=== PATIENT | female | born 1940 | race Caucasian/White ===

== ENCOUNTER 2020-08-02 08:56 | Outpatient (REF) | payer MEDICARE, SELFPAY | END 2020-08-02 08:57 | disposition home or self-care (01) | LOC: HO.LNP 08:56 | PROVIDERS: PCP Hospitalist; Visit Provider Urology | DX: C67.9 Malignant neoplasm of bladder, unspecified (principal); Z87.891 Personal history of nicotine dependence | CPT/HCPCS: 52000; 81002; 99212 ==

== ENCOUNTER 2020-08-03 15:22 | Outpatient (REF) | payer MEDICARE, SELFPAY ==
[2020-08-03 14:01] LABS: Urine Cytology See Pathology rpt
== END 2020-08-03 15:23 | disposition home or self-care (01) ==
LOC: HO.LNP 15:22
PROVIDERS: Visit Provider Urology
DX: C67.9 Malignant neoplasm of bladder, unspecified (principal)
CPT/HCPCS: 88112

== ENCOUNTER 2021-01-31 09:41 | Outpatient (REF) | payer MEDICARE, SELFPAY ==
[2021-01-31 12:27] LABS: Urine Cytology See Pathology rpt
== END 2021-01-31 09:42 | disposition home or self-care (01) ==
LOC: CF 09:41
PROVIDERS: PCP Hospitalist; Visit Provider Urology
DX: C67.9 Malignant neoplasm of bladder, unspecified (principal)
CPT/HCPCS: 52000; 88112; 99212

== ENCOUNTER 2021-08-03 09:39 | Outpatient (REF) | payer MEDICARE, SELFPAY ==
[2021-08-04 11:36] LABS: Urine Cytology See Pathology rpt
== END 2021-08-03 09:40 | disposition home or self-care (01) ==
LOC: HO.LAB 09:39
PROVIDERS: PCP Hospitalist; Visit Provider Urology
DX: C67.9 Malignant neoplasm of bladder, unspecified (principal)
CPT/HCPCS: 52000; 88112; 99212

== ENCOUNTER 2022-01-31 09:54 | Outpatient (REF) | payer MEDICARE, SELFPAY ==
[2022-01-31 16:20] LABS: Urine Cytology See Pathology rpt
== END 2022-01-31 09:55 | disposition home or self-care (01) ==
LOC: HO.LAB 09:54
PROVIDERS: Visit Provider Urology
DX: C67.9 Malignant neoplasm of bladder, unspecified (principal)
CPT/HCPCS: 52000; 88112; 99212

== ENCOUNTER 2022-08-03 09:44 | Outpatient (REF) | payer MEDICARE, SELFPAY ==
[2022-08-03 16:40] LABS: Urine Cytology See Pathology rpt
== END 2022-08-03 09:45 | disposition home or self-care (01) ==
LOC: HO.LAB 09:44
PROVIDERS: PCP Nurse Practitioner Family; Visit Provider Urology
DX: C67.9 Malignant neoplasm of bladder, unspecified (principal)
CPT/HCPCS: 52000; 88112

== ENCOUNTER 2023-03-12 09:46 | Outpatient (AMB) | payer MEDICARE, SELFPAY ==
--- NOTE | 2023-03-12 10:00 | A.OFFVIS_ITS ---
Intake Intake Visit Reasons: 6m follow up/cysto Intake Note: Patient is present for Cystoscopy Urology Med: None Antibiotic Allergy: None Blood Thinner: None Pharmacy: [facility] Disposable Cystoscope used during Procedure LOT#: [id number] EXP: 11/04/2024 Allergies codeine [CODEINE] Allergy (Unknown, Verified 03/12/23 10:03) NAUSEA & VOMITING oxycodone [OXYCODONE] Allergy (Unknown, Verified 03/12/23 10:03) UNKNOWN HPI HPI Comments History of Present Illness Details Leilani HUTCHINSON is a very pleasant female. She is a patient of . She is seen for the following urologic conditions - bladder cancer Bladder clear Six month follow-up Mild irritation Review in 6 months Bladder Cancer: November 2017 high-grade, initial therapy TURBT followed by BCG and surveillance Cystoscopy today normal Bladder cancer was initially diagnosed during evaluation for gross hematuria - 11/[address] Duncan. Bladder intervention(s) performed 12/09 , TURBT, T1 invades subepithelium, High Grade 05/11 restaging bladder biopsy. Recurrence Risk per EORTC Intermediate Risk. Bladder cancer risk factors Organic Solvent exposure No smoking Yes - 30 year a history stopped in 1994 Prior Cystoscopy 04/10 BCG redness 07/12 BCG inflammation 10/10 BCG inflammation on back wall 01/09 mild red changes, trabeculation 05/12 BCG changes 09/10 BCG changes 12/11 NAD, 08/14 NAD, 02/11 NAD, 08/15 NAD, 02/12 NAD, 08/16 NAD, 03/16 mild inflamation Prior Cytology 07/12 , Negative for malignancy, Inflammatory cells 04/11 , Negative for malignancy 05/12 NAD, 08/13 NAD, 11/10 Atypical, 08/14 NAD, 02/12 NAD Prior Imaging 12/09 , Retrogrades, Negative 11/08 CT Scan , Negative. Previous intravesical therapy 01/08 , BCG Induction 04/10 , BCG Maintanence, 01/09 , BCG Maintanence, 08/13 Gemcitabine Maintanence. Planned treatment - surveillance protocol [facility] Medical History Diabetes mellitus, type II GERD (gastroesophageal reflux disease) Malignant neoplasm of anterior wall of urinary bladder Surgical History History of hysterectomy Social History Current occupational status: retired Review of Systems Const Denies chills and Denies fever(s) Card Reports no additional complaints and Denies syncope Resp Denies cough GI Denies abdominal pain and Denies heartburn Reports as per HPI and Denies change in libido Neuro Denies syncope Psych Denies change in libido Endo Denies change in libido Physical Exam Const General: cooperative, healthy appearing, comfortable and no acute distress Orientation/consciousness: patient oriented x3 HEENT Face and sinus: Yes normal facial exam Mouth: moist mucous membranes Neck Neck: Yes normal visual inspection, Yes full ROM and Yes trachea midline Chest Chest palpation & inspection: normal inspection of the chest Resp Effort & Inspection: normal respiratory effort, able to speak in complete sentences and no respiratory distress GI Inspection: Yes normal to inspection Back/Spine/Pelvis Cervical Spine: normal cervical lordosis Thoracic/Lumbar Spine: thoracic and lumbar spine normal to inspection Skin General skin exam: no rashes or lesions noted Neuro General: patient oriented x3, gait normal, tone normal and moves all extremities Extrem General: Yes normal to inspection and Yes capillary refill normal Office Procedures Cystoscopy Consent Discussed risk and benefit or proposed procedure with the patient. Information consent for procedure given to the patient. Discussed technical aspects, risks, benefits and alternatives in full. Addressed all of the patient's questions and concerns regarding the procedure. The patient demonstrated knowledge and understanding. They wish to proceed with this procedure. Preparation The patient was prepped in the usual manner. A attending physician was present and in the room. Genitalia was prepped with betadine solution in a sterile manner. Lidocaine Jelly 2% was placed into the urethra and 16Fr flexible Olympus cystoscope was inserted into the meatus after adequate lubrication. Procedure Meatus normal position Urethra normal Bladder examination with retroflexion of cystoscope Bladder Orifices normal Trigone inflamed Bladder Capacity medium Trabeculations grade 2 Cellule Formation yes Diverticulum Formation small superior Mucosal Erythema patchy irritation Bladder Tumor - [id number]-[id number] DISPOSABLE SCOPE URO-G FLEXIBLE SCOPE Procedure code (CPT) selection complete Office Meds lidocaine HCl 2 % mucosal jelly in applicator Performing Provider: Craig Duncan MD [facility] [place] [facility] Administered by: Prachi Garcia RN on 03/12/23 10:11 Dose Route Admin Location Dispensed Lot Number Expiration Date NDC Medical Device Sales 10 mL intra-urethral 10 mL nitrofurantoin monohydrate/macrocrystals 100 mg capsule Performing Provider: Craig Duncan MD Performing Location[facility] [place] [facility] Administered by: Prachi Garcia RN on 03/12/23 10:11 Dose Route Admin Location Dispensed Lot Number Expiration Date NDC Medical Device Sales 100 mg PO 1 cap naproxen 500 mg tablet Performing Provider: Craig Duncan MD Performing Location[facility] [place] [facility] Administered by: Prachi Garcia RN on 03/12/23 10:11 Dose Route Admin Location Dispensed Lot Number Expiration Date NDC Medical Device Sales 500 mg PO 1 tab Results AMB Urinalysis, Automated 2 UA Leukoctes 0 Frederic/uL Last Edit by April Agrawal [facility] on 03/12/23 10:15 UA Nitrite Negative Last Edit by April Agrawal [facility] on 03/12/23 10:15 UA Urobilinogen 0.2 mg/dL Last Edit by April Agrawal [facility] on 03/12/23 10:1 5 UA Protein 0 mg/dL Last Edit by April Agrawal [facility] on 03/12/23 10:15 UA pH 6.0 Last Edit by April Agrawal [facility] on 03/12/23 10:15 UA Blood 0 [place]/uL Last Edit by April Agrawal [facility] on 03/12/23 10:15 UA Specific [place] 1.010 Last Edit by April Agrawal [facility] on 03/12/23 10: 15 UA Ketone Negative Last Edit by April Agrawal [facility] on 03/12/23 10:15 UA Bilirubin 0 mg/dL Last Edit by April Agrawal [facility] on 03/12/23 10:15 UA Glucose 0 mg/dL Last Edit by April Agrawal [facility] on 03/12/23 10:15 Results Reviewed Results Reviewed: Laboratory Last Values Urine pH (Auto) 6.0 03/12/23 10:03 Specific [place] (Auto) 1.010 03/12/23 10:03 Urine Protein (Auto) 0 mg/dL 03/12/23 10:03 Glucose (UA)(Auto) 0 mg/dL 03/12/23 10:03 Urine Ketones (Auto) Negative 03/12/23 10:03 Urine Blood (Auto) 0 [place]/uL 03/12/23 10:03 Urine Nitrite (Auto) Negative 03/12/23 10:03 Urine Bilirubin (Auto) 0 mg/dL 03/12/23 10:03 Urine Urobilinogen (Auto) 0.2 mg/dL 03/12/23 10:03 Leukocyte Esterase (Auto) 0 Frederic/uL 03/12/23 10:03 Assessment & Plan Assessment & Plan (1) Bladder cancer: Comment: 2018 high-grade superficial treatment was TURBT and immunotherapy sequence Code(s): C67.9 - Malignant neoplasm of bladder, unspecified Plan Continue surveillance Orders: Orders AMB Cystoscopy Today C67.9 - Malignant neoplasm of bladder, unspecified AMB Urinalysis Automated Today C67.9 - Malignant neoplasm of bladder, unspecified, Z13.9 - Encounter for screening, unspecified Urine Cytology Today C67.9 - Malignant neoplasm of bladder, unspecified Patient Instructions: Imaging studies, laboratory and physical exam results were discussed and reviewed in detail. No major barriers to patient understanding were identified. An opportunity to ask questions regarding the treatment plan was provided. All questions were answered. The patient expressed understanding and agreement with the above treatment plan. The patient is aware they should contact our office by phone for worsening of their current condition or the appearance of new urologic symptoms. Compliance is encouraged with any medications and followup testing that is ordered. It is a privilege to participate in the urologic care of your patient. If you have any questions or concerns regarding treatment for the above conditions, or other urologic issues, please do not hesitate to contact me. The office telephone contact is [phone]. This note is constructed using voice recognition software. While every effort has been made to ensure accuracy electronic design engineer errors may have been included. Yours sincerely, Dr Craig Duncan MD, [place] [facility] - Urology Providers of Expert, Compassionate Care for the Genitourinary System Coding Level of Care Code Est Pt Level 3 (58249) Diagnoses Bladder cancer C67.9 CPT Codes Cystoscopy - CPT: 76237-[id number] ([id number])
== END 2023-03-12 11:07 | disposition home or self-care (01) ==
PROVIDERS: PCP Nurse Practitioner Family; Visit Provider Urology
DX: C67.9 Malignant neoplasm of bladder, unspecified (principal)
CPT/HCPCS: 52000

== ENCOUNTER → 2023-03-12 09:46 | Outpatient (BNVA) | payer MEDICARE, SELFPAY | PROVIDERS: Visit Provider Urology | DX: C67.9 Malignant neoplasm of bladder, unspecified (principal) | CPT/HCPCS: 52000; 81003; 88112 ==

== ENCOUNTER 2023-03-12 16:36 | Outpatient (REF) | payer MEDICARE, SELFPAY ==
[2023-03-12 16:39] LABS: Urine Cytology See Pathology rpt
== END 2023-03-12 16:37 | disposition home or self-care (01) ==
LOC: HO.LNP 16:36
PROVIDERS: Visit Provider Urology
DX: Z13.89 Encounter for screening for other disorder (principal)
CPT/HCPCS: 88112

== ENCOUNTER 2023-09-10 08:33 | Outpatient (AMB) | payer MEDICARE, SELFPAY ==
--- NOTE | 2023-09-10 08:47 | A.OFFVIS_ITS ---
Intake Intake Visit Reasons: Cysto Intake Note: Patient is Present for Cystoscopy Urology Med: None Antibiotic Allergy:None Blood Thinner: None URO- G HD Disposable Cystoscope lot: [id number] exp: Allergies codeine [CODEINE] Allergy (Unknown, Verified 09/10/23 08:53) NAUSEA & VOMITING oxycodone [OXYCODONE] Allergy (Unknown, Verified 09/10/23 08:53) UNKNOWN HPI HPI Comments History of Present Illness Details Leilani HUTCHINSON is a very pleasant female. She is a patient of . She is seen for the following urologic conditions - bladder cancer On 6 months cystoscopy schedule Cystoscopy clear Continue surveillance for 10 years q.6 months Bladder Cancer: November 2017 high-grade, initial therapy TURBT followed by BCG and surveillance Cystoscopy today normal Bladder cancer was initially diagnosed during evaluation for gross hematuria - 11/[address] Duncan. Bladder intervention(s) performed 12/09 , TURBT, T1 invades subepithelium, High Grade 05/11 restaging bladder biopsy. Recurrence Risk per EORTC Intermediate Risk. Bladder cancer risk factors Organic Solvent exposure No smoking Yes - 30 year a history stopped in 1994 Prior Cystoscopy 04/10 BCG redness 07/12 BCG inflammation 10/10 BCG inflammation on back wall 01/09 mild red changes, trabeculation 05/12 BCG changes 09/10 BCG changes 12/11 NAD, 08/14 NAD, 02/11 NAD, 08/15 NAD, 02/12 NAD, 08/16 NAD, 03/16 mild inflamation, 10/14 NAD Prior Cytology 07/12 , Negative for malignancy, Inflammatory cells 04/11 , Negative for malignancy 05/12 NAD, 08/13 NAD, 11/10 Atypical, 08/14 NAD, 02/12 NAD, 03/16 NAD Prior Imaging 12/09 , Retrogrades, Negative 11/08 CT Scan , Negative. Previous intravesical therapy 01/08 , BCG Induction 04/10 , BCG Maintanence, 01/09 , BCG Maintanence, 08/13 Gemcitabine Maintanence. Planned treatment - surveillance protocol [facility] Medical History Diabetes mellitus, type II GERD (gastroesophageal reflux disease) Malignant neoplasm of anterior wall of urinary bladder Surgical History History of hysterectomy Social History Current occupational status: retired Review of Systems Const Denies chills and Denies fever(s) Card Reports no additional complaints and Denies syncope Resp Denies cough GI Denies abdominal pain and Denies heartburn Reports as per HPI and Denies change in libido Neuro Denies syncope Psych Denies change in libido Endo Denies change in libido Physical Exam Const General: cooperative, healthy appearing, comfortable and no acute distress Orientation/consciousness: patient oriented x3 HEENT Face and sinus: Yes normal facial exam Mouth: moist mucous membranes Neck Neck: Yes normal visual inspection, Yes full ROM and Yes trachea midline Chest Chest palpation & inspection: normal inspection of the chest Resp Effort & Inspection: normal respiratory effort, able to speak in complete sentences and no respiratory distress GI Inspection: Yes normal to inspection Back/Spine/Pelvis Cervical Spine: normal cervical lordosis Thoracic/Lumbar Spine: thoracic and lumbar spine normal to inspection Skin General skin exam: no rashes or lesions noted Neuro General: patient oriented x3, gait normal, tone normal and moves all extremities Extrem General: Yes normal to inspection and Yes capillary refill normal Office Procedures Cystoscopy Consent Discussed risk and benefit or proposed procedure with the patient. Information consent for procedure given to the patient. Discussed technical aspects, risks, benefits and alternatives in full. Addressed all of the patient's questions and concerns regarding the procedure. The patient demonstrated knowledge and understanding. They wish to proceed with this procedure. Preparation The patient was prepped in the usual manner. A prison officer was present and in the room. Genitalia was prepped with betadine solution in a sterile manner. Lidocaine Jelly 2% was placed into the urethra and 16Fr flexible Olympus cystoscope was inserted into the meatus after adequate lubrication. Procedure Meatus normal position Urethra normal Bladder examination with retroflexion of cystoscope Bladder Orifices normal shape and position Trigone mild metaplasia Bladder Capacity normal Trabeculations grade 1 Cellule Formation yes Diverticulum Formation - Mucosal Erythema - Bladder Tumor scarring on sidewall [id number] DISPOSABLE SCOPE URO-G FLEXIBLE SCOPE Procedure code (CPT) selection complete Office Meds lidocaine HCl 2 % mucosal jelly in applicator Performing Provider: Craig Duncan MD Performing Location: [facility] [place] [facility] Administered by: Prachi Arrington RN on 09/10/23 09:03 Dose Route Admin Location Dispensed Lot Number Expiration Date NDC It Security Analyst 10 mL intra-urethral 10 mL nitrofurantoin monohydrate/macrocrystals 100 mg capsule Performing Provider: Craig Duncan MD Performing Location: [facility] [place] [facility] Administered by: Prachi Arrington RN on 09/10/23 09:03 Dose Route Admin Location Dispensed Lot Number Expiration Date NDC It Security Analyst 100 mg PO 1 cap naproxen 500 mg tablet Performing Provider: Craig Duncan MD Performing Location: [facility] [place] [facility] Administered by: Prachi Arrington RN on 09/10/23 09:03 Dose Route Admin Location Dispensed Lot Number Expiration Date NDC It Security Analyst 500 mg PO 1 tab Results AMB Urinalysis, Automated UA Leukoctes 0 Frederic/uL Last Edit by JC Adam on 09/10/23 09:03 UA Nitrite Negative Last Edit by CJ Adam on 09/10/23 09:03 UA Urobilinogen 0.2 mg/dL Last Edit by April Agrawal [facility] on 09/10/23 09:0 3 UA Protein 0 mg/dL Last Edit by CJ Adam on 09/10/23 09:03 UA pH 5.0 Last Edit by April Agrawal [facility] on 09/10/23 09:03 UA Blood 0 [place]/uL Last Edit by CJ Adam on 09/10/23 09:03 UA Specific [place] 1.020 Last Edit by CJ Adam on 09/10/23 09: 03 UA Ketone Negative Last Edit by CJ Adam on 09/10/23 09:03 UA Bilirubin 0 mg/dL Last Edit by CJ Adam on 09/10/23 09:03 UA Glucose 0 mg/dL Last Edit by April Agrawal Gael on 09/10/23 09:03 Results Reviewed Results Reviewed: Laboratory Last Values Urine pH (Auto) 5.0 09/10/23 08:53 Specific [place] (Auto) 1.020 03/19/24 08:53 Urine Protein (Auto) 0 mg/dL 09/10/23 08:53 Glucose (UA)(Auto) 0 mg/dL 09/10/23 08:53 Urine Ketones (Auto) Negative 09/10/23 08:53 Urine Blood (Auto) 0 [place]/uL 09/10/23 08:53 Urine Nitrite (Auto) Negative 09/10/23 08:53 Urine Bilirubin (Auto) 0 mg/dL 09/10/23 08:53 Urine Urobilinogen (Auto) 0.2 mg/dL 09/10/23 08:53 Leukocyte Esterase (Auto) 0 Frederic/uL 09/10/23 08:53 Assessment & Plan Assessment & Plan (1) Bladder cancer: Comment: 2018 high-grade superficial treatment was TURBT and immunotherapy sequence Code(s): C67.9 - Malignant neoplasm of bladder, unspecified Plan Six-month follow-up cystoscopy Orders: Orders AMB Cystoscopy 09/10/23 C67.9 - Malignant neoplasm of bladder, unspecified Urine Cytology 09/10/23 C67.9 - Malignant neoplasm of bladder, unspecified AMB Urinalysis Automated 09/10/23 Z13.9 - Encounter for screening, unspecified Patient Instructions: Imaging studies, laboratory and physical exam results were discussed and reviewed in detail. No major barriers to patient understanding were identified. An opportunity to ask questions regarding the treatment plan was provided. All questions were answered. The patient expressed understanding and agreement with the above treatment plan. The patient is aware they should contact our office by phone for worsening of their current condition or the appearance of new urologic symptoms. Compliance is encouraged with any medications and followup testing that is ordered. It is a privilege to participate in the urologic care of your patient. If you have any questions or concerns regarding treatment for the above conditions, or other urologic issues, please do not hesitate to contact me. The office telephone contact is [phone]. This note is constructed using voice recognition software. While every effort has been made to ensure accuracy endodontist errors may have been included. Yours sincerely, Dr Craig Duncan MD, [place] [facility] - Urology Providers of Expert, Compassionate Care for the Genitourinary System Coding Level of Care Code Procedure Only Diagnoses Bladder cancer C67.9 CPT Codes Cystoscopy - CPT: [id number] ([id number])
== END 2023-09-10 09:39 | disposition home or self-care (01) ==
PROVIDERS: PCP Nurse Practitioner Family; Visit Provider Urology
DX: C67.9 Malignant neoplasm of bladder, unspecified (principal); Z13.9 Encounter for screening, unspecified
CPT/HCPCS: 52000

== ENCOUNTER 2023-09-10 08:33 | Outpatient (REF) | payer MEDICARE, SELFPAY ==
[2023-09-10 17:34] LABS: Urine Cytology See Pathology rpt
== END 2023-09-10 08:34 | disposition home or self-care (01) ==
LOC: HO.LNP 08:33
PROVIDERS: PCP Nurse Practitioner Family; Visit Provider Urology
DX: C67.9 Malignant neoplasm of bladder, unspecified (principal)
CPT/HCPCS: 52000; 81003; 88112

== ENCOUNTER 2024-04-07 12:36 | Outpatient (AMB) | payer MEDICARE, SELFPAY ==
--- NOTE | 2024-04-07 12:58 | A.OFFVIS_ITS ---
Intake Visit Reasons: Cystoscopy(Bladder Ca) Intake Note: Patient is present for Cystoscopy Urology Medication:NONE Antibiotic Allergy:NONE Blood Thinner:NONE Lot:[id number] Exp:10/02/26 Java Technical Manager Required: No Allergies codeine [CODEINE] Allergy (Unknown, Verified 04/07/24 12:59) NAUSEA & VOMITING oxycodone [OXYCODONE] Allergy (Unknown, Verified 04/07/24 12:59) UNKNOWN HPI Comments Details: Leilani HUTCHINSON is a very pleasant female. She is a patient of . She is seen for the following urologic conditions - bladder cancer On 6 months cystoscopy schedule Cystoscopy clear Continue surveillance for 10 years q.6 months since high-grade disease initially Atypical cells on cytology Bladder Cancer: November 2017 high-grade, initial therapy TURBT followed by BCG and surveillance Cystoscopy today normal Bladder cancer was initially diagnosed during evaluation for gross hematuria - 11/[address] Duncan. Bladder intervention(s) performed 12/09 , TURBT, T1 invades subepithelium, High Grade 05/11 restaging bladder biopsy. Recurrence Risk per EORTC Intermediate Risk. Bladder cancer risk factors Organic Solvent exposure No smoking Yes - 30 year a history stopped in 1994 Prior Cystoscopy 04/10 BCG redness 07/12 BCG inflammation 10/10 BCG inflammation on back wall 01/09 mild red changes, trabeculation 05/12 BCG changes 09/10 BCG changes 12/11 NAD, 08/14 NAD, 02/11 NAD, 08/15 NAD, 02/12 NAD, 08/16 NAD, 03/16 mild inflamation, 10/14 NAD Prior Cytology 07/12 , Negative for malignancy, Inflammatory cells 04/11 , Negative for malignancy 05/12 NAD, 08/13 NAD, 11/10 Atypical, 08/14 NAD, 02/12 NAD, 03/16 NAD Prior Imaging 12/09 , Retrogrades, Negative 11/08 CT Scan , Negative. Previous intravesical therapy 01/08 , BCG Induction 04/10 , BCG Maintanence, 01/09 , BCG Maintanence, 08/13 Gemcitabine Maintanence. Planned treatment - surveillance protocol [facility] Medical History Diabetes mellitus, type II GERD (gastroesophageal reflux disease) Malignant neoplasm of anterior wall of urinary bladder Surgical History History of hysterectomy Social History Current occupational status: retired Review of Systems Const Denies chills and Denies fever(s) Card Reports no additional complaints and Denies syncope Resp Denies cough GI Denies abdominal pain and Denies heartburn Reports as per HPI and Denies change in libido Neuro Denies syncope Psych Denies change in libido Endo Denies change in libido Physical Exam Const General: cooperative, healthy appearing, comfortable and no acute distress Orientation/consciousness: patient oriented x3 HEENT Face and sinus: Yes normal facial exam Mouth: moist mucous membranes Neck Neck: Yes normal visual inspection, Yes full ROM and Yes trachea midline Chest Chest palpation & inspection: normal inspection of the chest Resp Effort & Inspection: normal respiratory effort, able to speak in complete sentences and no respiratory distress GI Inspection: Yes normal to inspection Back/Spine/Pelvis Cervical Spine: normal cervical lordosis Thoracic/Lumbar Spine: thoracic and lumbar spine normal to inspection Skin General skin exam: no rashes or lesions noted Neuro General: patient oriented x3, gait normal, tone normal and moves all extremities Extrem General: Yes normal to inspection and Yes capillary refill normal Office Procedures Cystoscopy Consent Discussed risk and benefit or proposed procedure with the patient. Information consent for procedure given to the patient. Discussed technical aspects, risks, benefits and alternatives in full. Addressed all of the patient's questions and concerns regarding the procedure. The patient demonstrated knowledge and understanding. They wish to proceed with this procedure. Preparation The patient was prepped in the usual manner. A supervisor maintenance was present and in the room. Genitalia was prepped with betadine solution in a sterile manner. Lidocaine Jelly 2% was placed into the urethra and 16Fr flexible Olympus cystoscope was inserted into the meatus after adequate lubrication. Meatus normal Urethra normal Bladder examination with retroflexion of cystoscope Bladder Orifices normal shape and position Trigone normal Bladder Capacity normal Trabeculations - Cellule Formation - Diverticulum Formation - Mucosal Erythema - Bladder Tumor - [id number] DISPOSABLE SCOPE URO-G FLEXIBLE SCOPE Procedure code (CPT) selection complete Office Meds lidocaine HCl 2 % mucosal jelly in applicator Performing Provider: Craig Duncan MD Performing Location[facility] Administered by: Neno Mullen RN on 04/07/24 13:32 Dose Route Admin Location Dispensed Lot Number Expiration Date ND Collision Worker 10 mL intra-urethral 10 mL nitrofurantoin monohydrate/macrocrystals 100 mg capsule Performing Provider: Craig Duncna MD Performing Location: [facility] Administered by: Neno Mullen RN on 04/07/24 13:32 Dose Route Admin Location Dispensed Lot Number Expiration Date NDC Collision Worker 100 mg PO 1 cap naproxen 500 mg tablet Performing Provider: Craig Duncan MD Performing Location: [facility] Administered by: Neno Mullen RN on 04/07/24 13:32 Dose Route Admin Location Dispensed Lot Number Expiration Date NDC Collision Worker 500 mg PO 1 tab Results AMB Urinalysis, Automated UA Leukoctes 0 Frederic/uL Last Edit by GERMAN Adam on 04/07/24 13:18 UA Nitrite Negative Last Edit by Juan Jasmine CCM on 04/07/24 13:18 UA Urobilinogen 0.2 mg/dL Last Edit by Juan Jasmine CCM on 04/07/24 13:1 8 UA Protein 0 mg/dL Last Edit by Juan Jasmine CCM on 04/07/24 13:18 UA pH 6.0 Last Edit by Juan Jasmine [facility] on 04/07/24 13:18 UA Blood 0 [place]/uL Last Edit by Juan Jasmine CCM on 04/07/24 13:18 UA Specific [place] 1.020 Last Edit by GERMAN Adam on 04/07/24 13: 18 UA Ketone Negative Last Edit by Juan Jasmine CCM on 04/07/24 13:18 UA Bilirubin 0 mg/dL Last Edit by GERMAN Adam on 04/07/24 13:18 UA Glucose 0 mg/dL Last Edit by Juan Jasmine [facility] on 04/07/24 13:18 Results Reviewed Results Reviewed: Laboratory Last Values Urine pH (Auto) 6.0 04/07/24 13:17 Specific [place] (Auto) 1.020 04/07/24 13:17 Urine Protein (Auto) 0 mg/dL 04/07/24 13:17 Glucose (UA)(Auto) 0 mg/dL 04/07/24 13:17 Urine Ketones (Auto) Negative 04/07/24 13:17 Urine Blood (Auto) 0 [place]/uL 04/07/24 13:17 Urine Nitrite (Auto) Negative 04/07/24 13:17 Urine Bilirubin (Auto) 0 mg/dL 04/07/24 13:17 Urine Urobilinogen (Auto) 0.2 mg/dL 04/07/24 13:17 Leukocyte Esterase (Auto) 0 Frederic/uL 04/07/24 13:17 Assessment & Plan Assessment & Plan (1) Bladder cancer: Comment: 2017 high-grade superficial treatment was TURBT and immunotherapy sequence Code(s): C67.9 - Malignant neoplasm of bladder, unspecified Category: Medical Plan Continue surveillance Orders: Orders AMB Cystoscopy Today C67.9 - Malignant neoplasm of bladder, unspecified AMB Urinalysis Automated Today Z13.9 - Encounter for screening, unspecified Patient Instructions: Imaging studies, laboratory and physical exam results were discussed and reviewed in detail. No major barriers to patient understanding were identified. An opportunity to ask questions regarding the treatment plan was provided. All questions were answered. The patient expressed understanding and agreement with the above treatment plan. The patient is aware they should contact our office by phone for worsening of their current condition or the appearance of new urologic symptoms. Compliance is encouraged with any medications and followup testing that is ordered. It is a privilege to participate in the urologic care of your patient. If you have any questions or concerns regarding treatment for the above conditions, or other urologic issues, please do not hesitate to contact me. The office telephone contact is [phone]. This note is constructed using voice recognition software. While every effort has been made to ensure accuracy welt butter hand errors may have been included. Yours sincerely, Dr Craig Duncan MD, JN [facility] - Urology Providers of Expert, Compassionate Care for the Genitourinary System Coding Level of Care Code Est Pt Level 3 (13454) Diagnoses Bladder cancer C67.9 CPT Codes Cystoscopy - CPT: 53966-[id number] ([id number])
== END 2024-04-07 13:53 | disposition home or self-care (01) ==
PROVIDERS: PCP Nurse Practitioner Family; Visit Provider Urology
DX: C67.3 Malignant neoplasm of anterior wall of bladder (principal)
CPT/HCPCS: 52000; 99213

== ENCOUNTER → 2024-04-07 12:36 | Outpatient (BNVA) | payer MEDICARE, SELFPAY | PROVIDERS: PCP Nurse Practitioner Family; Visit Provider Urology | DX: C67.3 Malignant neoplasm of anterior wall of bladder (principal) | CPT/HCPCS: 52000; 81003; 99212 ==

== ENCOUNTER 2024-04-24 08:04 | Outpatient (AMB) | payer MEDICARE, SELFPAY ==
[2024-04-24 08:09] VITALS: BP 122/80; PULSE 86; O2SAT 91
--- NOTE | 2024-04-24 08:09 | AM.OFFWIN_ITS ---
Intake Vital Signs 04/24/24 08:09 04/24/24 08:27 Weight 196 lb 8 oz BP 122/80 Blood Pressure Location Rt brachial Position Sitting Pulse 86 Pulse Source Pulse Oximeter Pulse Oximetry (%) 91 L 95 Oxygen Delivery Method Room Air Room Air Intake Visit Reasons: EP-breathing wheezing, dizziness, sob Intake Note: Patient here for wheezing that has been present for about 2-3 weeks and wo rsening. Pt states she has been getting dizzy when getting up, chest tightness and bad cough. Patient Tobacco Use Status: Former Tobacco user Allergies codeine [CODEINE] Allergy (Unknown, Verified 04/24/24 08:14) NAUSEA & VOMITING oxycodone [OXYCODONE] Allergy (Unknown, Verified 04/24/24 08:14) UNKNOWN Do you need a note to return to daycare/school/sports/work: No HPI HPI Comments History of Present Illness Details Patient is an 84-year-old female complaining of 2-3 weeks of a dry cough, a light headache, shortness of breath and wheezing. She also tells me when she gets up each morning and sits up from bed, she feels a little bit dizzy she states this is worse when she moves her head. She denies any fevers, head congestion, sinus pain or ear pain. She states she is eating and drinking a little bit less than normal and she is not tried to take any medications to help herself feel better. She did not test at home for COVID. She tells me she does have mild COPD and was a former smoker but she quit 27 years ago. She does not take any COPD medications. She tells me she did get her flu vaccine this year and her COVID vaccine. [facility] Medical History Diabetes mellitus, type II GERD (gastroesophageal reflux disease) Malignant neoplasm of anterior wall of urinary bladder Surgical History History of hysterectomy Social History Patient Tobacco Use Status: Former Tobacco user Current occupational status: retired Review of Systems Const All systems reviewed & are unremarkable except as noted in HPI and below Physical Exam Vital Signs: Last Vital Signs Pulse 86 04/24/24 08:09 BP 122/80 04/24/24 08:09 Pulse Ox 95 04/24/24 08:27 Oxygen Delivery Method Room Air 04/24/24 08:27 Const General: cooperative, healthy appearing, comfortable and no acute distress Orientation/consciousness: patient oriented x3 Limitations: no limitations HEENT Head: Yes normal to inspection Ears: hearing grossly normal bilaterally, external ears normal and TM's normal bilaterally General nose exam: Normal external nose present, Normal nares present and No nasal discharge present Face and sinus: Yes normal facial exam and Yes sinuses nontender Mouth: Normal oral and palatal mucosa present and moist mucous membranes Throat: Yes tonsils normal, Yes uvula midline and Yes posterior oropharynx abnormal (Erythema) Eyes General: appearance normal, both eyes and all related structures Neck Neck: Yes normal visual inspection Resp Effort & Inspection: normal respiratory effort, able to speak in complete sentences, no respiratory distress, not tachypneic, no tripod positioning and no use of accessory muscles Auscultation: wheezes expiratory wheezes, inspiratory wheezes and throughout and diminished lung sounds diffuse Cardio Rate: regular rate Rhythm: regular rhythm Heart sounds: normal S1 and S2 Skin General skin exam: no rashes or lesions noted Neuro General: patient oriented x3 Extrem General: Yes normal to inspection and Yes no clubbing, cyanosis or edema Assessment & Plan Assessment & Plan (1) Lower respiratory infection (e.g., bronchitis, pneumonia, pneumonitis, pulmonitis): Code(s): J22 - Unspecified acute lower respiratory infection Plan: Patient is satting 95% on room air, with her constellation of symptoms and mild COPD and age and inspiratory and expiratory wheezes with dim lung sounds, I will get a chest x-ray. Also sending prednisone burst and an inhaler. Reviewed risks and benefits of both medications with the patient and explained how to use the albuterol inhaler. My interpretation of the x-ray showed a right-sided pneumonia involving the entire right upper middle and lower lobe with a consolidation in the right upper lobe. Sent CAP treatment to pharmacy. Plan see above Orders: Orders XR chest 2V Today R05.9 - Cough, unspecified Medications: New prednisone 40 mg (2 x 20 mg) PO DAILY 10 tabs 0RF albuterol sulfate 90 mcg/actuation (Ventolin HFA) 2 puffs inhalation Q4-6H PRN 8.5 grams 0RF shortness of breath or wheezing amoxicillin-pot clavulanate 875-125 mg 1 tab PO Q12H 10 tabs 0RF azithromycin For 250 mg dose pack: take 500 mg today (day 1), then 250 mg for 4 days (days 2-5) PO 6 tabs 0RF Coding Level of Care Code New Pt Level 4 (29487) Diagnoses Lower respiratory infection (e.g., bronchitis, pneumonia, pneumonitis, pulmonitis) J22
[2024-04-24 08:27] VITALS: O2SAT 95
== END 2024-04-24 09:29 | disposition home or self-care (01) ==
PROVIDERS: PCP Nurse Practitioner Family; Visit Provider Physician Assistant
DX: J22 Unspecified acute lower respiratory infection (principal)

== ENCOUNTER 2024-04-24 08:04 | Outpatient (REF) | payer MEDICARE, SELFPAY ==
--- NOTE | ~2024-04-24 | XR_ITS ---
EXAMINATION: XR CHEST CLINICAL INFORMATION: Cough COMPARISON: Chest x-ray on 12/26/2012 TECHNIQUE: 2 views of the chest were obtained. FINDINGS: Consolidation in the right upper lobe and diffuse bronchial wall thickening throughout the right lung. There is spondylolysis thickening in the left lung to a lesser extent than the right. No pleural effusions. The cardia mediastinal silhouette is normal. XR/XR chest 2V IMPRESSION: Right upper lobe pneumonia. Electronically signed by: Pamela Dodd MD 04/24/2024 09:37 AM EDT
== END 2024-04-24 08:05 | disposition home or self-care (01) ==
LOC: HO.HMGCX 08:04
PROVIDERS: PCP Nurse Practitioner Family; Visit Provider Physician Assistant
DX: R05.9 Cough, unspecified (principal); J22 Unspecified acute lower respiratory infection
CPT/HCPCS: 71046; 99202

== ENCOUNTER 2024-05-15 08:01 | Outpatient (AMB) | payer MEDICARE, SELFPAY ==
--- NOTE | 2024-05-15 08:08 | AM.OFFWIN_ITS ---
Intake Vital Signs 05/15/24 08:12 Weight 196 lb BP 120/72 Blood Pressure Location Rt brachial Position Sitting Pulse 78 Pulse Source Pulse Oximeter Pulse Oximetry (%) 88 L Oxygen Delivery Method Room Air Intake Visit Reasons: EP-body rash Intake Note: Patient here for rash all over body that started saturday. Patient Tobacco Use Status: Former Tobacco user Allergies codeine [CODEINE] Allergy (Unknown, Verified 05/15/24 08:12) NAUSEA & VOMITING oxycodone [OXYCODONE] Allergy (Unknown, Verified 05/15/24 08:12) UNKNOWN Do you need a note to return to daycare/school/sports/work: No HPI HPI Comments History of Present Illness Details 84 y/o female patient who presents to [facility] walk in clinic with c/o Rash all over his Body since Saturday. Pt was diagnosed with Pneumonia 04/24 and was prescribed Prednisone, Zpack and Augmentin for 5 days she completed Abx course 04/30. She noticed the Rash Last Saturday (05/10), that has been spreading all over her body. Describes the rash as red and very itchy. Denies Allergies to Azithromycin or PCN. Denies facial edema, SOB or CP. [facility] Medical History Diabetes mellitus, type II GERD (gastroesophageal reflux disease) Malignant neoplasm of anterior wall of urinary bladder Surgical History History of hysterectomy Social History Patient Tobacco Use Status: Former Tobacco user Current occupational status: retired Review of Systems Const All systems reviewed & are unremarkable except as noted in HPI and below Physical Exam Vital Signs: Last Vital Signs Pulse 78 05/15/24 08:12 BP 120/72 05/15/24 08:12 Pulse Ox 88 L 05/15/24 08:12 Oxygen Delivery Method Room Air 05/15/24 08:12 Const General: comfortable and no acute distress Nutritional Appearance: obese Orientation/consciousness: patient oriented x3 Resp Effort & Inspection: normal respiratory effort Auscultation: clear to auscultation bilaterally Cardio Heart sounds: S1 normal heart sound present and S2 normal heart sound present Skin Other: Macular papular erythematous rash covering entire body. General skin exam: erythema Neuro General: patient oriented x3, gait normal and moves all extremities Psych Speech and movement: Normal speech and movement present Assessment & Plan Assessment & Plan (1) Rash and nonspecific skin eruption: Code(s): R21 - Rash and other nonspecific skin eruption Plan: DDx's: Allergic delayed reaction to PCN vs Other types of Rash. Ordered Zrytec BID instead of Prednisone. Pt does not want anymore Prednisone at this time Ordered Topical Steroid cream x 14 days. Advised to go to ED if not better or worse. Medications: New cetirizine (Zyrtec) 10 mg PO DAILY 90 tabs 0RF R21 - Rash and other nonspecific skin eruption triamcinolone acetonide 0.1% 1 appl topical BID 454 grams 0RF R21 - Rash and other nonspecific skin eruption Coding Level of Care Code Est Pt Level 3 (24395) Diagnoses Rash and nonspecific skin eruption R21 Time Spent (min) 15
[2024-05-15 08:12] VITALS: BP 120/72; PULSE 78; O2SAT 88
== END 2024-05-15 08:42 | disposition home or self-care (01) ==
PROVIDERS: PCP Nurse Practitioner Family; Visit Provider Nurse Practitioner Family
DX: R21 Rash and other nonspecific skin eruption (principal)

== ENCOUNTER → 2024-05-15 08:01 | Outpatient (BNVA) | payer MEDICARE, SELFPAY | PROVIDERS: PCP Nurse Practitioner Family; Visit Provider Nurse Practitioner Family | DX: R21 Rash and other nonspecific skin eruption (principal) | CPT/HCPCS: 99212 ==

== ENCOUNTER 2024-08-18 15:28 | Outpatient (AMB) | payer MEDICARE, SELFPAY ==
--- NOTE | 2024-08-18 15:29 | MHC.OFFVIS ---
Intake Visit Reasons: discuss imaging Intake Note: Patient is present for DISCUSS IMAGING Urology Medication:NONE Antibiotic Allergy:NONE Blood Thinner:NONE Forestry Extension Specialist Required: No Allergies codeine [CODEINE] Allergy (Unknown, Verified 08/18/24 15:30) NAUSEA & VOMITING oxycodone [OXYCODONE] Allergy (Unknown, Verified 08/18/24 15:30) UNKNOWN HPI Comments Details: Leilani HUTCHINSON is a very pleasant female. She is a patient of . She is seen for the following urologic conditions - bladder cancer Telemedicine Evaluation 15 min Consultation Copyright Agent Kael Video Recently underwent CT chest after persistent consolidation on x-ray. Initially treated as pneumonia. Imaging showed 9.3 x 7.6 cm consolidated mass on right side. Nodules present in the right middle lobe, right lower lobe. Mediastinal adenopathy up to 1.[address] abdomen showed mild dilatation of left renal pelvis. Question of urothelial enhancement. L1 vertebral body area of sclerosis. Findings concerning for metastatic disease. Leilani will be undergoing thoracic biopsy with Dr. Boyd at [facility]. Has upcoming PET-CT. Based on the current imaging biopsy of the left renal pelvis unlikely to be diagnostic. Urothelial carcinoma is traditionally biopsied through ureteroscopy. This could be organized if necessary. However this stage the thoracic biopsy would take priority. To this point in time cytology has only ever shown occasional inflammatory cells are scant atypical cells. Neither of these are consistent with high-grade bladder cancer. Bladder Cancer: November 2017 T1 - high-grade, multifocal - initial therapy TURBT followed by BCG and surveillance Bladder cancer was initially diagnosed during evaluation for gross hematuria - 11/[address] Duncan. Bladder intervention(s) performed 12/09 , TURBT, T1 invades subepithelium, High Grade 05/11 restaging bladder biopsy. Recurrence Risk per EORTC Intermediate Risk. Bladder cancer risk factors Organic Solvent exposure No smoking Yes - 30 year a history stopped in 1994 Prior Cystoscopy 04/10 BCG redness 07/12 BCG inflammation, 10/10 BCG inflammation on back wall, 01/09 mild red changes, trabeculation, 05/12 BCG changes 09/10 BCG changes, 12/11 NAD, 08/14 NAD, 02/11 NAD, 08/15 NAD, 02/12 NAD, 08/16 NAD, 03/16 mild inflamation, 10/14 NAD Prior Cytology 10/09 positive for high-grade cells, 1/19 , Negative for malignancy, Inflammatory cells 04/11 , Negative for malignancy, 11 NAD, 08/13 NAD, 11/10 Atypical, 08/14 NAD, 02/12 NAD, 03/16 NAD, 3 scant atypical cells Prior Imaging 12/09 , Retrogrades, Negative 11/08 CT Scan , Negative. Previous intravesical therapy 01/08 , BCG Induction, 04/10 BCG Maintanence, 01/09 BCG Maintanence, 08/13 Gemcitabine Maintanence. Planned treatment - surveillance protocol [facility] Medical History Diabetes mellitus, type II GERD (gastroesophageal reflux disease) Malignant neoplasm of anterior wall of urinary bladder Surgical History History of hysterectomy Social History Patient Tobacco Use Status: Former Tobacco user Current occupational status: retired Review of Systems Const All systems reviewed & are unremarkable except as noted in HPI and below Reports no additional complaints Resp Reports no additional complaints GI Reports no additional complaints Reports as per HPI Musc Reports no additional complaints Physical Exam Telemedicine evaluation Appropriate responses Regular breathing rate and rhythm HEENT Head: Yes normal to inspection Ears: hearing grossly normal bilaterally Eyes General: appearance normal, both eyes and all related structures Neck Neck: Yes normal visual inspection Chest Chest palpation & inspection: normal inspection of the chest Resp Effort & Inspection: normal respiratory effort and able to speak in complete sentences Telehealth Telehealth Location of provider rendering services: practice address Location of patient: address on file Patient Identification confirmed using: Name, : Yes Telehealth method: voice only Patient verbally consented to treatment: Yes Patient verbally consented to billing insurance company: Yes Patient informed of any privacy concerns related to visit: Yes Assessment & Plan Assessment & Plan (1) Bladder cancer: Comment: 2017 high-grade superficial treatment was TURBT and immunotherapy sequence Code(s): C67.9 - Malignant neoplasm of bladder, unspecified Category: Medical Plan Copy of note will be sent to [facility] Has upcoming check cystoscopy in 6 weeks' time Right ureteroscopy with biopsy could be performed at any time Patient Instructions: This note is constructed using voice recognition software. While every effort has been made to ensure accuracy wood pattern maker errors may have been included. Imaging studies, laboratory and physical exam results were discussed and reviewed in detail. No major barriers to patient understanding were identified. An opportunity to ask questions regarding the treatment plan was provided. All questions were answered. The patient expressed understanding and agreement with the above treatment plan. The patient is aware they should contact our office by phone for worsening of their current condition or the appearance of new urologic symptoms. Compliance is encouraged with any medications and followup testing that is ordered. It is a privilege to participate in the urologic care of your patient. If you have any questions or concerns regarding treatment for the above conditions, or other urologic issues, please do not hesitate to contact me. The office telephone contact is [phone]. Sincerely, Dr Craig Duncan MD, JN [facility] - Urology Compassionate Specialist Care for the Genitourinary System Coding Level of Care Code Tele Est Pt Level 4 (76015) Complex EM visit Add On G2211 Diagnoses Bladder cancer C67.9
--- OUTSIDE RECORDS SUMMARY | 2024-08-18 19:17 | XMS_ITS | Continuity of Care Document ---
Author Organization [facility] [facility] Address [address] [place] [address]- Care Team Providers Care Filter Tank Operator Name Role Phone Umang SALAS, Angela Knox Primary Care Physician [phone] Encounter 07/16/24 - 07/23/24 [facility] [address], [address] [place] [address]- Attending Physician: Angela Heck NP Admitting Physician: Angela Heck NP Referring Physician: Umang SALAS, Angela Knox Encounter Type: OutPatient One Time Allergies, Adverse Reactions, Alerts Substance Criticality Severity Reaction Reaction Severity Status codeine nausea Active Immunizations Given and Recorded Vaccine Date Status Refusal Reason SARS-CoV-2(COVID-19)mRNA-LNP vac([id number]) 02/19/24 Recorded SARS-CoV-2(COVID-19)mRNA-LNP vac(awt922) 03/24/23 Recorded influenza virus vaccine, inactivated 02/19/24 Tyrell rded influenza virus vaccine, inactivated 02/15/23 Tyrell rded influenza virus vaccine, inactivated 02/19/22 Tyrell rded influenza virus vaccine, inactivated 02/09/21 Tyrell rded influenza virus vaccine, inactivated 02/24/18 Tyrell rded influenza virus vaccine, inactivated 05/04/16 Tyrell rded [id number] 12y+ bivalent booster vax 10/17/22 Recorded [id number] 12y+ bivalent booster vax 03/12/22 Recorded SARS-CoV-2 mRNA (ivqqwnv-yofy-tmysg) vax 09/27/21 Recorded SARS-CoV-2 (COVID-19) mRNA BNT-162b2 vac 03/17/21 Recorded SARS-CoV-2 (COVID-19) mRNA BNT-162b2 vac 1 08/19/20 Recorded SARS-CoV-2 (COVID-19) mRNA BNT-162b2 vac 2 07/29/20 Recorded Influenza Virus Vaccine (oldterm) 3 02/09/20 Recor ded Influenza Virus Vaccine (oldterm) 02/08/19 Recorde d Zoster Vaccine Live 4 06/10/19 Recorded Zoster Vaccine Live 5 02/23/19 Recorded pneumococcal 13-valent vaccine 01/06/19 Recorded pneumococcal 13-valent vaccine 06/20/15 Recorded tetanus-diphtheria toxoids (Td) 06/24/11 Recorded pneumococcal 23-valent vaccine 01/08/11 Recorded 1Result Comment: [facility] 2Result Comment: [facility] 3Result Comment: [facility] 4Result Comment: Pharmacy 5Result Comment: Pharmacy Medications amLODIPine 2.5 mg oral tablet 1 tablet, By Mouth, Daily, # 90 tablet, 1 Refills, Maintenance, 02/09/24 8:05:00 AM EDT, [facility]/pharmacy #[id number], 166, cm, 08/02/23 8:41:00 EST, Height Start Date: 02/09/24 Status: Ordered Quantity: 90.0 Unit: tablet Repeat number: 2 atorvastatin 80 mg oral tablet 1 tablet, By Mouth, Daily, # 90 tablet, 1 Refills, Maintenance, 04/26/24 7:44:00 AM EST, [facility] 14759, 166, cm, 02/13/24 8:45:00 EDT, Height Start Date: 04/26/24 Status: Ordered Quantity: 90.0 Unit: tablet Repeat number: 1 Biotin See Instructions, Takes twice a week, 0 Refills, Maintenance, 02/25/19 2:56:50 PM EDT Start Date: 02/25/19 Status: Ordered Repeat number: 1 olmesartan 40 mg oral tablet 1 tablet, By Mouth, Daily, # 30 tablet, 5 Refills, Maintenance, 03/09/24 11:22:00 AM EDT, 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 100 cc of Isovue 300 was administered intravenously. Weight-based protocol was performed using automatic exposure control. CTDIvol Body: 15.13 mGy, DLP Body: 558 mGy*cm. COMPARISON: None. FINDINGS: Heat Treat Technician view findings, lines and tubes: None. Trachea and airways: Trachea is patent with small amount of secretions. There is narrowing of the bronchus intermedius at its mid to distal aspect, example series 3 image 49, with patency. Lungs and pleura: Again Central consolidative masslike area which measures up to approximately 9.3 x 7.6 cm and is with associated narrowing of the bronchus intermedius, as above, encasement of the distal right pulmonary artery, in contact with the right superior and inferior pulmonary veins. This extends to the mediastinum/mediastinal pleura for example series 2 image 53. Distal to this is appearance of groundglass and interlobular septal thickening which can be seen with lymphatic type obstruction or lymphatic involvement of malignancy. Findings extend to the right major fissure where thereis mass effect. Numerous distal endobronchial type pattern of nodules are present involving the right middle lobe, right lower lobe, and contralateral lungs, for example nodule in the left which measures up to 7 mm. No effusion or pneumothorax. Mediastinum and barbara: Mediastinal adenopathy up to 1.4 cm. Mediastinal lymph nodes are also morphologically abnormal, for example subcarinal lymph node. Right hilar adenopathy is likely present, although obscured by right hilar findings above. No esophageal abnormality. Partially imaged thyroid is u nremarkable. Heart: Heart is normal in size. No pericardial effusion. Severe coronary artery calcification. Aorta: Moderate vascular calcification but no aneurysm. Pulmonary arteries: -Right pulmonary artery which could be due to associated mass effect. No evidence of pulmonary embolism on this study performed without angiographic technique. Chest wall soft tissues: No axillary adenopathy. No acute abnormality. Diaphragm: Intact. Upper abdomen: Partially seen exophytic lesion at the hilum of the left kidney which measures up to2.0 cm. Bones: No acute abnormality. Contiguous osteophytosis and moderate degenerative changes of the thoracic spine. IMPRESSION: Consolidative masslike opacity at the right lung centrally, abutting and extending to the hilum with associated findings which can be seen with lymphangitic obstruction and lymphangitic invasion of malignancy as well as ipsilateral and contralateral endobronchial type spread. There is abnormal mediastinal adenopathy by size and appearance. There is associated mass effect on the right bronchus intermedius. Recommend consideration for further clinical evaluation which could include bronchoscopy/sampling. Partially seen at the left kidney up to 2.0 cm exophytic lesion with soft tissue attenuation. Differential could include primary or metastatic disease. An actionable message (Yellow) has been communicated via the [employer] system on 07/16/2024 3:25 PM, Message ID [id number]. WSN: [id number] Ordering Physician: Angela Heck Dictated By: Belia Davis MD Dictated Date/Time: 07/16/24 3:26 pm Reviewed By: Belia Davis MD Signed By: Belia Davis MD Signed Date/Time: 07/16/24 3:26 pm Transcribed By: FABRIZIO Transcribed Date/Time: 07/16/24 3:13 pm Social History Social History Type Response Smoking Status Former smoker, quit more than 30 days ago; Use: Quit 1996 entered on: 01/06/19 Sex Sex Representation Female (finding) Patient Care team information Care Team Personnel Name: Angela Heck NP Position: [facility] PCO Associate Professional Member Role: PCP Address: [address] [place] [address]- Telecom: Care Team Related Persons Name: EVANGELINAEVERARDO Insurance Providers Guarantor name: HAI HUTCHINSON Health Plan Information #: 2 Payer: MEDEX Member Number: [id number] Policy Number: NA Group Number: NA Health Plan Information #: 1 Payer: MEDICARE PART B OUTPT Member Number: [id number] Policy Number: NA Group Number: NA
--- OUTSIDE RECORDS SUMMARY | 2024-08-18 19:17 | XMS_ITS | Continuity of Care Document ---
Author Organization [facility] Chris Alfaro Raimundo lt Address [address] [place] [address]- Care Team Providers Care Forest Practices Field Coordinator Name Role Phone Umang SALAS, Angela Knox Primary Care Physician [phone] Encounter [facility] Date(s): 07/16/24 - 08/15/24 [facility] Chris Alfaro Adult [address] [place] [address]- Encounter Type: Triage Allergies, Adverse Reactions, Alerts Substance Criticality Severity Reaction Reaction Severity Status codeine nausea Active Immunizations Given and Recorded Vaccine Date Status Refusal Reason SARS-CoV-2(COVID-19)mRNA-LNP vac([id number]) 02/19/24 Recorded SARS-CoV-2(COVID-19)mRNA-LNP vac(ppi580) 03/24/23 Recorded influenza virus vaccine, inactivated 02/19/24 Tyrell rded influenza virus vaccine, inactivated 02/15/23 Tyrell rded influenza virus vaccine, inactivated 02/19/22 Tyrell rded influenza virus vaccine, inactivated 02/09/21 Tyrell rded influenza virus vaccine, inactivated 02/24/18 Tyrell rded influenza virus vaccine, inactivated 05/04/16 Tyrell rded [id number] 12y+ bivalent booster vax 10/17/22 Recorded [id number]-[id number] 12y+ bivalent booster vax 03/12/22 Recorded SARS-CoV-2 mRNA (gpyvewa-oyrn-bclnv) vax 09/27/21 Recorded SARS-CoV-2 (COVID-19) mRNA BNT-162b2 [...] pneumococcal 23-valent vaccine 01/08/11 Recorded 1Result Comment: [facility] 2Result Comment: [facility] 3Result Comment: [facility] 4Result Comment: Pharmacy 5Result Comment: Pharmacy Medications amLODIPine 2.5 mg oral tablet 1 tablet, By Mouth, Daily, # 90 tablet, 1 Refills, Maintenance, 08/04/24 10:52:00 AM EST, [facility] 37082, 166, cm, 07/27/24 8:47:00 EST, Height Start Date: 08/04/24 Status: Ordered Quantity: 90.0 Unit: tablet Repeat number: 1 atorvastatin 80 mg oral tablet 1 tablet, By Mouth, Daily, # 90 tablet, 1 Refills, Maintenance, 04/26/24 7:44:00 AM EST, [facility]4622, 166, cm, 02/13/24 8:45:00 EDT, Height Start Date: 04/26/24 Status: Ordered Quantity: 90.0 Unit: tablet Repeat number: 1 Biotin See Instructions, Takes twice a week, 0 Refills, Maintenance, 02/25/19 2:56:50 PM EDT Start Date: 02/25/19 Status: Ordered Repeat number: 1 olmesartan 40 mg oral tablet 1 tablet, By Mouth, Daily, # 30 tablet, 5 Refills, Maintenance, 03/09/24 11:22:00 AM EDT, [facility] 31541, 166, cm, 02/13/24 8:45:00 EDT, Height Start [...] diabetes mellitus with renal complication Confirmed Active Social History Social History Type Response Smoking Status Former smoker, quit more than 30 days ago entered on: 07/27/24 Sex Sex Representation Female (finding) Patient Care team information Care Team Personnel Name: Umang SALAS, Angela Knox Position: S PCO Associate Professional Member Role: PCP Address: [address] [place] [id number] Telecom: Care Team Related Persons Name: EVERARDO HTUCHINSON Insurance Providers Guarantor name: HAI HUTCHNISON Health Plan Information #: 1 Payer: MEDICARE PART B OUTPT Member Number: NA Policy Number: NA Group Number: NA Health Plan Information #: 2 Payer: MEDEX Member Number: NA Policy Number: NA Group Number: NA
--- OUTSIDE RECORDS SUMMARY | 2024-08-18 19:17 | XMS_ITS | Continuity of Care Document ---
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 Name Role Phone Umang SALAS, Angela Knox Primary Care Physician [place] [facility] [place]s): 07/27/24 - 08/03/24 [facility] [address] [place] [address] Drive [address] [place], [place] [address] Attending Physician: Jordan Navarro DO Referring Physician: Umang SALAS, Angela Knox Encounter Type: Office Visit Allergies, Adverse Reactions, Alerts Substance Criticality Severity Reaction Reaction Severity Status codeine nausea Active Immunizations Given and Recorded Vaccine Date Status Refusal Reason SARS-CoV-2(COVID-19)mRNA-LNP vac([id number]) 02/19/24 Recorded SARS-CoV-2(COVID-19)mRNA-LNP vac(sbv021) 03/24/23 Recorded influenza virus vaccine, inactivated 02/19/24 Tyrell rded influenza virus vaccine, inactivated 02/15/23 Tyrell rded influenza virus vaccine, inactivated 02/19/22 Tyrell rded influenza virus vaccine, inactivated 02/09/21 Tyrell rded influenza virus vaccine, inactivated 02/24/18 Tyrell rded influenza virus vaccine, inactivated 05/04/16 Tyrell rded [id number] 12y+ bivalent booster vax 10/17/22 Recorded [id number]-[id number] 12y+ bivalent booster vax 03/12/22 Recorded SARS-CoV-2 mRNA (tgkqvte-awrs-odfag) vax 09/27/21 Recorded SARS-CoV-2 (COVID-19) mRNA BNT-162b2 [...] pneumococcal 23-valent vaccine 01/08/11 Recorded 1Result Comment: [facility] 2Result Comment: [facility] 3Result Comment: [facility] 4Result Comment: Pharmacy 5Result Comment: Pharmacy Medications amLODIPine 2.5 mg oral tablet 1 tablet, By Mouth, Daily, # 90 tablet, 1 Refills, Maintenance, 02/09/24 8:05:00 AM EDT, [facility]/pharmacy #[id number], 166, cm, 08/02/23 8:41:00 EST, Height Start Date: 02/09/24 Status: Ordered Quantity: 90.0 Unit: tablet Repeat number: 2 atorvastatin 80 mg oral tablet 1 tablet, By Mouth, Daily, # 90 tablet, 1 Refills, Maintenance, 04/26/24 7:44:00 AM EST, [facility] 25671, 166, cm, 02/13/24 8:45:00 EDT, Height Start Date: 04/26/24 Status: Ordered Quantity: 90.0 Unit: tablet Repeat number: 1 Biotin See Instructions, Takes twice a week, 0 Refills, Maintenance, 02/25/19 2:56:50 PM EDT Start Date: 02/25/19 Status: Ordered Repeat number: 1 olmesartan 40 mg oral tablet 1 tablet, By Mouth, Daily, # 30 tablet, 5 Refills, Maintenance, 03/09/24 11:22:00 AM EDT, [facility] 17892, 166, cm, 02/13/24 8:45:00 EDT, Height Start [...] diabetes mellitus with renal complication Confirmed Active Vital Signs Most recent to oldest [Reference Range]: 1 Height 166.0 cm (07/27/24 8:47 AM) Weight 89.3 kg (07/27/24 8:47 AM) Oxygen Saturation [94-100 %] 94 % (07/27/24 8:47 AM) Pulse Rate [55-90 bpm] 61 bpm (07/27/24 8:47 AM) Body Mass Index [18.5-24.99 kg/m2] 32.41 kg/m2 *>HHI* (07/27/24 8:47 AM) Blood Pressure [90-138/55-84 mm Hg] 118/ 64mm Hg (07/27/24 8:47 AM) Respiratory Rate [16-30 br/min] 18 br/mi n (07/27/24 8:47 AM) Temperature [96.8-100.4 DegF] 98 DegF (07/27/24 8:47 AM) Mode of Delivery (Oxygen) Room air (07/27/24 8:47 AM) Blood pressure sites Arm, right (07/27/24 8:47 AM) Temperature Route Temporal (07/27/24 8:47 AM) Weight Obtained Via Standing scale (07/27/24 8:47 AM) Social History Social History Type Response Smoking Status Former smoker, quit more than 30 days ago entered on: 07/27/24 Sex Sex Representation Female (finding) Note * Vonda Reynolds: PERFORM Event Display: Patient Education/Instruction Authored Date: Ambulatory Adult Visit Summary [facility] [address] [place] [address] Drive [address] [place] [address] Name: HAI HUTCHINSON : 1940?? Visit: 07/27/2024 08:44?? Ambulatory Visit Instructions ?? Your Care Team Primary Care Provider Angela Heck NP? This Visit Provider Jordan Navarro DO Vitals Signs Temperature: 98 DegF Height: 166 cm Pulse Rate: 61 bpm Weight: 89.3 kg Respiratory Rate: 18 br/min Body Mass Index:??32.41 kg/m2??Critical Systolic Blood Pressure: 118 mm Hg Body surface area: 2.03 Diastolic Blood Pressure: 64 mm Hg ?? Oxygen Saturation: 94 % ?? What to do next Instructions From Your Provider [facility] [address] [place] [address] Dr. Rogers [address] [place] [id number] ?? [address]. Jordan Navarro, DO, FACS?? Dr. Charisma Vences MD, FCCP, FACS? Dr. Olga Romero MD, MPH, FACS? Chastity Mandel, MSN, [employer]- ?? Office Phone #: [phone]? Office Fax #: [phone] ?? You are being sent for the following imaging studies to be done within??2 weeks??(you will be called to schedule these studies unless otherwise noted): -??PET/CT ?? You are being referred for the following testing (you will be called to schedule these tests unlessotherwise noted): -??Pulmonary Function Testing (lung test), CT-Guided Biopsy (Interventional Radiology) - our officewill schedule this for you ?? Our surgical garment inspector will call you to schedule the following procedure(s): -??Bronchoscopy (flexible camera to examine the airway), Endobronchial Ultrasound (EBUS) guided lymph node biopsies (bronchoscopic biopsy of lymph nodes in the middle of the chest) ?? Scheduled Follow-Up Appointments 2024 8:50 AM EST ?? With: Umang SALAS, Angela Knox Where: [address] [address]- Status: Pending Follow-Up Appointments Follow up Appointment - Ordered?-- Office follow up with Dr. Navarro 7-10 days after bronchoscopy/EBUS, 07/27/24 9:42:00 EST Future Orders MRI Brain W+W/O Contrast, Routine, Reason for Exam: Other:, Eval for intracranial metastatic disease, No-No Pacemaker or Neurostimulator, Can Patient Stand Alone?, Please schedule within 2-3 weeks (patient cannot do 08/06/2024 - 08/14/2024), Once, *Est. 07/27/24, Single or Recur... Medications The list below reflects the information in our records and provided by you today along with any changes made during this visit. Please continue your medications until treatment is completed or stopped by your provider. If this is different from the information you have or there are other questions,please contact the prescribing provider. What How Much When Instructions Unchanged Amlodipine (amLODIPine 2.5 mg oral tablet) 1 tab(s) Oral Daily Unchanged Atorvastatin (atorvastatin 80 mg oral tablet) 1 tab(s) Oral Daily Unchanged Biotin See instructions Takes twice a week ?? Unchanged Olmesartan (olmesartan 40 mg oral tablet) 1 tab(s) Oral Daily Medications and Immunizations Administered Medications Given During Visit No medications given during this visit.?? Allergies (NKA means No Known Allergies) codeine??(nausea) Common Emergency Awareness Tips IS IT A STROKE? Act FAST and Check for these signs: FACE Does the face look uneven? ARM Does one arm drift down? SPEECH Does their speech sound strange? TIME Call at any sign of stroke ?? Heart Attack Signs Chest discomfort: Most heart attacks involve discomfort in the center of the chest and lasts more than a few minutes, or goes away and comes back. It can feel like uncomfortable pressure, squeezing, fullness or pain. Discomfort in upper body: Symptoms can include pain or discomfort in one or both arms, back, neck, jaw or stomach. Shortness of breath: With or without discomfort. Other signs: Breaking out in a cold sweat, nausea, or lightheaded. Remember, MINUTES DO MATTER. If you experience any of these heart attack warning signs, call to get immediate medical attention! ?? Smoking can increase your chances of developing chronic health problems and can cause harmful effects to other family members in your house. If you smoke, you are strongly encouraged to quit. Please call [facility] at [phone] or [phone] ([phone]) or log in to [email or web address] for referrals to smoking cessation programs. ?? The National Suicide Prevention Hotline is available 14/01 if you or someone you know needs to find a reason to keep living. By calling 9-451-828-nfbm (7406) you'll be connected to a skilled, trained counselor at a crisis center in your area. [facility] You can view and manage your care through the patient portal or by using a health care juventino of your choosing. [facility] is a website that allows you to securely view your medical information including your hospital discharge summary, office visit summaries, medications and follow-up visits. You can also request appointments, renew medications, and request access to your medical information using a health care juventino of your choosing, or just ask a question. You can enroll at [email or web address] or register during your next office visit. [facility], in keeping with [facility] guidance, no longer requires face masks for staff, patientsor visitors in most situations. Similiar to time spent indoors at other locations, there is the chance that you were exposed to repiratory viruses during your time with us (such as flu or COVID-19). If you develop symptoms concerning for a viral respiratory infection, please seek testing (and treatment if indicated) from your medical provider or home test kit. ?? Disclaimer: The information provided is of a general nature and is intended to be used in conjunction with the recommendations and advice of your health care practitioner. Every effort has been made to ensure that the information provided is accurate and complete at the time it is provided to you however, as your needs change, or, as new information becomes available, different or additional instructions may be required. ?? If you have questions, please consult with your primary care provider or pharmacist, as appropriate. This information is not intended to serve as substitution for assessment and evaluation by a qualified health care provider. If you do not have a primary care provider, you may find a [facility] provider by calling [facility] Link at [phone]. Patient Care team information Care Team Personnel Name: Angela Heck NP Position: [facility] PCO Associate Professional Member Role: PCP Address: [address] [place] [address]- Telecom: Care Team Related Persons Name: EVERARDO HUTCHINSON Insurance Providers Guarantor name: HAI HUTCHINSON Health Plan Information #: 1 Payer: MEDICARE PART B OUTPT Member Number: [id number] Policy Number: MIMI Group Number: MIMI Health Plan Information #: 2 Payer: MEDEX Member Number: [id number] Policy Number: MIMI Group Number: [id number]
--- OUTSIDE RECORDS SUMMARY | 2024-08-18 19:17 | XMS_ITS | Continuity of Care Document ---
Author Organization [facility] Chris Alfaro Raimundo lt Address [address] [place] [address]- Care Team Providers Care Crane Ladle Person Name Role Phone Umang SALAS, Angela Knox Primary Care Physician [place] [facility] [place]17[place]24 [place] 08/16/24 [facility] Delongley Adult [address] [place] [address]- Encounter Type: Triage Allergies, Adverse Reactions, Alerts Substance Criticality Severity Reaction Reaction Severity Status codeine nausea Active Immunizations Given and Recorded Vaccine Date Status Refusal Reason SARS-CoV-2(COVID-19)mRNA-LNP vac([id number]) 02/19/24 Recorded SARS-CoV-2(COVID-19)mRNA-LNP vac([id number]) 03/24/23 Recorded influenza virus vaccine, inactivated 02/19/24 Tyrell rded influenza virus vaccine, inactivated 02/15/23 Tyrell rded influenza virus vaccine, inactivated 02/19/22 Tyrell rded influenza virus vaccine, inactivated 02/09/21 Tyrell rded influenza virus vaccine, inactivated 02/24/18 Tyrell rded influenza virus vaccine, inactivated 05/04/16 Tyrell rded [id number] 12y+ bivalent booster vax 10/17/22 Recorded [id number]-[id number]-[id number] 12y+ bivalent booster vax 03/12/22 Recorded SARS-CoV-2 mRNA (yynqafz-ixof-bufyc) vax 09/27/21 Recorded SARS-CoV-2 (COVID-19) mRNA BNT-162b2 [...] pneumococcal 23-valent vaccine 01/08/11 Recorded 1Result Comment: [facility] 2Result Comment: [facility] 3Result Comment: [facility] 4Result Comment: Pharmacy 5Result Comment: Pharmacy Medications amLODIPine 2.5 mg oral tablet 1 tablet, By Mouth, Daily, # 90 tablet, 1 Refills, Maintenance, 08/04/24 10:52:00 AM EST, [id number], 166, cm, 07/27/24 8:47:00 EST, Height Start Date: 08/04/24 Status: Ordered Quantity: 90.0 Unit: tablet Repeat number: 1 atorvastatin 80 mg oral tablet 1 tablet, By Mouth, Daily, # 90 tablet, 1 Refills, Maintenance, 04/26/24 7:44:00 AM EST, [facility]208, 166, cm, 02/13/24 8:45:00 EDT, Height Start Date: 04/26/24 Status: Ordered Quantity: 90.0 Unit: tablet Repeat number: 1 Biotin See Instructions, Takes twice a week, 0 Refills, Maintenance, 02/25/19 2:56:50 PM EDT Start Date: 02/25/19 Status: Ordered Repeat number: 1 olmesartan 40 mg oral tablet 1 tablet, By Mouth, Daily, # 30 tablet, 5 Refills, Maintenance, 03/09/24 11:22:00 AM EDT, [facility] 14200, 166, cm, 02/13/24 8:45:00 EDT, Height Start [...] PCO Associate Professional Member Role: PCP Address: [address] [place] [id number] Telecom: Care Team Related Persons Name: EVERARDO HUTCHINSON Insurance Providers Guarantor name: HAI HUTCHINSON Health Plan Information #: 1 Payer: MEDICARE PART B OUTPT Member Number: NA Policy Number: NA Group Number: NA Health Plan Information #: 2 Payer: MEDEX Member Number: NA Policy Number: NA Group Number: NA
--- OUTSIDE RECORDS SUMMARY | 2024-08-18 19:17 | XMS_ITS | Continuity of Care Document ---
Author Organization [facility] Address [address], [address] [place] [address]- Care Team Providers Care Press Assistant And Feeder Name Role Phone Umang SALAS, Angela Knox Primary Care Physician [phone] Encounter 07/15/24 - 07/22/24 [facility] [address], [address] [place] [address]- Attending Physician: Angela Heck NP Admitting Physician: Angela Heck NP Referring Physician: Umang SALAS, Angela Knox Encounter Type: OutPatient One Time Allergies, Adverse Reactions, Alerts Substance Criticality Severity Reaction Reaction Severity Status codeine nausea Active Immunizations Given and Recorded Vaccine Date Status Refusal Reason SARS-CoV-2(COVID-19)mRNA-LNP vac([id number]) 02/19/24 Recorded SARS-CoV-2(COVID-19)mRNA-LNP vac([id number]) 03/24/23 Recorded influenza virus vaccine, inactivated 02/19/24 Tyrell rded influenza virus vaccine, inactivated 02/15/23 Tyrell rded influenza virus vaccine, inactivated 02/19/22 Tyrell rded influenza virus vaccine, inactivated 02/09/21 Tyrell rded influenza virus vaccine, inactivated 02/24/18 Tyrell rded influenza virus vaccine, inactivated 05/04/16 Tyrell rded [id number] 12y+ bivalent booster vax 10/17/22 Recorded [id number]-[id number]-[id number] 12y+ bivalent booster vax 03/12/22 Recorded SARS-CoV-2 mRNA (cdrhbfz-jmcb-jesho) vax 09/27/21 Recorded SARS-CoV-2 (COVID-19) mRNA BNT-162b2 [...] pneumococcal 23-valent vaccine 01/08/11 Recorded 1Result Comment: [facility] 2Result Comment: [facility] 3Result Comment: [facility] 4Result Comment: Pharmacy 5Result Comment: Pharmacy Medications amLODIPine 2.5 mg oral tablet 1 tablet, By Mouth, Daily, # 90 tablet, 1 Refills, Maintenance, 02/09/24 8:05:00 AM EDT, [facility]/pharmacy #[id number], 166, cm, 08/02/23 8:41:00 EST, Height Start Date: 02/09/24 Status: Ordered Quantity: 90.0 Unit: tablet Repeat number: 2 atorvastatin 80 mg oral tablet 1 tablet, By Mouth, Daily, # 90 tablet, 1 Refills, Maintenance, 04/26/24 7:44:00 AM EST, [facility], 166, cm, 02/13/24 8:45:00 EDT, Height Start Date: 04/26/24 Status: Ordered Quantity: 90.0 Unit: tablet Repeat number: 1 Biotin See Instructions, Takes twice a week, 0 Refills, Maintenance, 02/25/19 2:56:50 PM EDT Start Date: 02/25/19 Status: Ordered Repeat number: 1 olmesartan 40 mg oral tablet 1 tablet, By Mouth, Daily, # 30 tablet, 5 Refills, Maintenance, 03/09/24 11:22:00 AM EDT, [facility] [address], 166, cm, 02/13/24 8:45:00 EDT, Height Start [...] Exam Date Time Procedure Performing Provider Status 07/15/24 10:22 AM Chest 2 Views Frontal and Lat Nery DebbyRyan Sewell (Verified) Notes: (Chest 2 Views Frontal and Lat) Reason For Exam: f/u pneumonia;Other: RESULT: Chest 2 Views Frontal and Lat Chest 2 Views Frontal and Lat Reason: Other:; f u pneumonia COMPARISON: 06/03/2024 FINDINGS: Right upper lobe consolidation airspace disease and consolidation has not changed. Additional patchy nodular airspace disease in the right lowe mid and lower lung zones has not changed. IMPRESSION: No change in findings of multifocal right lung pneumonia. Would consider chest CT with contrast given the persistent right lung disease. An actionable message (Yellow) has been communicated via the [employer] system on 07/15/2024 10:27 AM, Message ID [id number]. WSN: [id number] Ordering Physician: Angela Heck Dictated By: Richie Hernandez MD Dictated Date/Time: 07/15/24 10:27 a Reviewed By: Richie Hernandez MD Signed By: Richie Hernandez MD Signed Date/Time: 07/15/24 10:27 am Transcribed By: FABRIZIO Transcribed Date/Time: 07/15/24 10:24 am Social History Social History Type Response Smoking Status Former smoker, quit more than 30 days ago; Use: Quit 1996 entered on: 01/06/19 Sex Sex Representation Female (finding) Patient Care team information Care Team Personnel Name: Angela Heck NP Position: [facility] PCO Associate Professional Member Role: PCP Address: [address] [place] [address]- Telecom: Care Team Related Persons Name: EVERARDO HUTCHINSON Insurance Providers Guarantor name: HAI HUTCHINSON Health Plan Information #: 2 Payer: MEDEX Member Number: [id number] Policy Number: NA Group Number: NA Health Plan Information #: 1 Payer: MEDICARE PART B OUTPT Member Number: [id number] Policy Number: NA Group Number: NA
== END 2024-08-18 16:40 | disposition home or self-care (01) ==
LOC: HO.HUSH 15:28
PROVIDERS: PCP Nurse Practitioner Family; Visit Provider Urology
DX: C67.9 Malignant neoplasm of bladder, unspecified (principal)
CPT/HCPCS: 99214; G2211

== ENCOUNTER → 2024-08-18 15:28 | Outpatient (BNVA) | payer MEDICARE, SELFPAY | PROVIDERS: PCP Nurse Practitioner Family; Visit Provider Urology ==

== ENCOUNTER 2024-10-08 08:24 | Outpatient (AMB) | payer MEDICARE, SELFPAY ==
--- OUTSIDE RECORDS SUMMARY | 2024-10-08 08:45 | XMS_ITS | Data Portability ---
Author Organization [place] [facility] Address [address] [place] [id number] Care Team Providers Care Project Controller Name Role Phone DARIO CRAWLEY Primary Care Provider Assessment Encounter Date Assessment Date Assessment LastModified by Organization Details LastModified Time 04/22/2022 04/22/2022 Overview/History : 82 YO F new to DH and new to provider She is being seen today or some finger pain. Over past few weeks age has noticed her R pinky finger nail has a divet in it. Since noticing increased pain and mild swelling to nail bed. Has been applying topical abx but pain has still progressed somewhat. Rated as 1/10. Still has full function and sensation to finger tip. No other complaints today. Denies numbness/tinglin g, fever, chills, sever pain, trauma. Exam: Vitals: VSS and afebrile Constitutional: 82 yo Well developed, well nourished, pleasant patient in no apparent distress. Upright, comfortable, and not toxic. Eyes: corrective lenses, No swelling, no discharge, sclera / conjunctiva clear CV: RRR, 2+ radial pulses bilaterally Pulm: Speaks in full sentences, no increased work of breathing. MS: Self ambulatory patient, moves all limbs without deficit, no evidence of trauma, full AROM to BL fingers Neuro: No focal deficits, A&O x4, sensation intact to fingers BL Skin: Mild tenderness to L pinky nail bed, no sig redness or swelling, no abscesses. No open wounds or dc noted. No bleeding. Nail intact. +Cap refill. Remainder of skin appars cdi. Psych: Calm, cooperative, non-manic. Pleasant. DDx considered, but not limited to: Paronychia - ML at this time Necrosis/Necroti szing Fascitis -No s/s of necrosis, no crepitus, sensation intact, no rapid progression Sepsis- no fever, VSS, well apeparing, not septic Work up/Results: N/a Plan/Discussion: Paronychia: -Mild paronychia, no abscess -Has trialled topical abx w/o relief -Has divet to nail but no severe nail damage, no need for removal in home, f/u with PCP and possible specialist for nail care moving forward, likely vector for probable infx -No red flag s/s requiring emergent eval at this time -Start doxy, first dose given on scene, tolerated well, Take w/ food to avoid GI upset, she believes she has taken it before and tolerated it well. Star warm soaks as well and keep area clean. -F/u if sxs cont, f/u w/ PCP for cont care and management and possible nail daycare manager referral -F/u emergently for any fever, chills, severe pain, spreading redness, loss of sensation, s/s of necrosis Pt is on agreement and verbalizes understanding with the above plans at this time. Pt has no other questions or concerns at this time. All questiosn are answered to the best of my ability. Pt thanks us for our visit today. In order to obtain further information and compare any laboratory results/values, I have accessed . This information was pertinent in my medical decision making today. [email or web address] Not available 04/22/2022 12:27:04 Plan of Treatment Reminders Order Date Submit Date Provider Last Modified By Organization Details Last Modified Time Details Appointments None recorded. Lab None recorded. Referral None recorded. Procedures None recorded. Surgeries None recorded. Imaging None recorded. Medication Orders doxycycline hyclate 100 mg capsule 2021 022 [id number], [address] [place], [address], 12:02:37 doxycycline hyclate 100 mg capsule 2021 022 crumpl[id number], [address] [place], [address], 12:02:27 Patient TargetsNo targets recorded. Patient InstructionsNo instructions recorded. Reason for Referral None Reported. Procedures Surgical History Date Name Laterality Status Provider Name and Address Organization Details Recorded Time 022 Medication Review completed MEME Meza [address], [place], [address], [place] [facility] 04/22/2022 12:14:29 hysterectomy completed MEME Meza [address], [place], [address], [place] [facility] 04/22/2022 11:51:24 Imaging Results None recorded. Procedure Notes None recorded. Medical Equipment None Reported. Allergies Allergen ID Allergen Name Allergen Category Reaction Reaction Severity Criticality Documentation Date Start Date Code Code System Note Provider Name and Address Organization Details Recorded Time [id number] codeine medicatio n Not available Not available Not available 04/22/2022 2670 RxNorm MEME Frost [address] [place], [address], [place] [facility] 11:26:58 Medications Name Sig Start Date Stop Date Status Note LastModified by Organization Details LastModified Time atorvastati n 80 mg tablet TAKE 1 TABLET BY MOUTH EVERY DAY active Not Available Not Available No t Available doxycycline hyclate 100 mg capsule TAKE 1 CAPSULE BY MOUTH TWICE A DAY DIRECTED FOR 7 DAYS active Not Available Not Available No t Available lisinopril 20 mg tablet TAKE 1 TABLET BY MOUTH EVERY DAY 04/22 completed Not Available Not Available Not Available cephalexin 500 mg capsule TAKE 1 CAPSULE BY MOUTH 3 TIMES PER DAY FOR 7 DAYS FOR INFECTION 04/22 completed Not Available Not Available Not Available olmesartan 40 mg tablet TAKE 1 TABLET BY MOUTH EVERY DAY active Not Available Not Available No t Available biotin active Not Available Not Availa ble Not Available Vitals Date Recorded Oxygen saturation Oxygen saturation in Arterial blood by Pulse oximetry Body temperature Heart rate Respiratory rate Systolic blood pressure Diastolic blood pressure Provider Name and Address Organization Details Last Updated DateTime 95 % 95 % 97.8 [degF] 78 /min 18 /min 142 mm[Hg] 76 mm[Hg] Not Available [facility] 11:53:06 Social History Question Answer Notes LastModified by Organizat ion Details LastModified Time Tobacco Smoking Status Former Smoker MEME Meza [address] [place], [address], [place] [facility] 04/22/2022 11:29:05 What Is Your Level Of Alcohol Consumption? Occasional Information not available 04/22/2022 When Did You Quit Smoking? 16+yearssincel astcisagrarioette Information not available 04/22/2022 Do You Use Any Illicit Or Recreational Drugs? No Information not available 04/22/2022 Sex: Unknown Functional Status None recorded. Mental Status None recorded. Family History Relationship Description Onset Age of this Age Resolved Age Notes LastModified by Organization Details LastModified Time Mother Hypertensive disorder crumplik Not available 2021 11:50:29 Notes:father in WW2 so unknown on that side Medical History Condition Response Coronary Artery Disease N COPD N Depression N A-fib N Cancer Y Stroke N Rheumatoid Arthritis N Kidney Disease Y CHF N Asthma N Pulmonary Embolism N Hypothyroidism N High Cholesterol Y Parkinson's Disease N Diabetes Y Dementia N Hypertension Y Osteoporosis N Gynecological HistoryNo gynecological history recorded. Obstetrics History GPAL:G 0 P 0 0 0 0 Past Encounters Encounter ID Performer Location Encounter Start Date Encounter Closed Date Diagnosis/Indication Diagnosis SNOMED-CT Code Diagnosis ICD10 Code Diagnosis Note [id number] MEME Garcia [facility] [address] [place] [address] 04/22/2022 11:20:58 04/23/2022 13:38:24 Paronychia of finger 038087183 L03.019 Health Concerns Section Related Observation LastModified by Organization Detai ls LastModified Time None Recorded Concern Status LastModified by Organization Details LastModified Time None Recorded Advance Directives Directive None Recorded Payers Encounter Date Sequence Insurance Name Policy Number Policy Mathew Covered Member ID Mathew Member ID Guarantor Name 04/22/2022 1 [place] [employer] Leilani Leigh [id number] Leilani Leigh 04/22/2022 2 [place] [id number] Leilani Leigh [id number] Leilani Leigh Notes Date Note Type Note Provider Name and Address Organization Details Recorded Time 04/22/2022 text/html 82 YO F new to D H and new to providerShe is being seen today or some finger pain. Over past few weeks age has noticed her R pinky finger nail has a divet in it. Since noticing increased pain and mild swelling to nail bed. Has been applying topical abx but pain has still progressed somewhat. Rated as 1/10. Still has full function and sensation to finger tip. No other complaints today. Denies numbness/tingling , fever, chills, sever pain, trauma. MEME Meza [facility] [address] [place], [address], [place] [facility] 04/22/2022 12:27:15 OBGyn Episode No OBEpisode recorded.
--- OUTSIDE RECORDS SUMMARY | 2024-10-08 08:45 | XMS_ITS | Continuity of Care Document ---
Author Organization [facility] Address [address] [place] [address]- Care Team Providers Care Textile Machine Mechanic Name Role Phone Umang SALAS, Angela Knox Primary Care Physician [phone] [place] [facility] Date(s): 09/07/24 - 10/07/24 [facility] [address] [place] [address] Encounter Type: Triage Allergies, Adverse Reactions, Alerts Substance Criticality Severity Reaction Reaction Severity Status codeine nausea Active Immunizations Given and Recorded Vaccine Date Status Refusal Reason pneumococcal 20-valent conjugate vaccine 10/05/24 Given SARS-CoV-2(COVID-19)mRNA-LNP vac([id number]) 02/19/24 Recorded SARS-CoV-2(COVID-19)mRNA-LNP vac([id number]) 03/24/23 Recorded influenza virus vaccine, inactivated 02/19/24 Tyrell rded influenza virus vaccine, inactivated 02/15/23 Tyrell rded influenza virus vaccine, inactivated 02/19/22 Tyrell rded influenza virus vaccine, inactivated 02/09/21 Tyrell rded influenza virus vaccine, inactivated 02/24/18 Tyrell rded influenza virus vaccine, inactivated 05/04/16 Tyrell rded [id number] 12y+ bivalent booster vax 10/17/22 Recorded ZKPR-VeX-8vDSG 12y+ bivalent booster vax 03/12/22 Recorded SARS-CoV-2 mRNA (slotmlr-xmdm-hokfm) vax 09/27/21 Recorded SARS-CoV-2 (COVID-19) mRNA BNT-162b2 [...] pneumococcal 23-valent vaccine 01/08/11 Recorded [facility] 2[facility]: [facility] 3Result Comment: [facility] 4Result Comment: Pharmacy 5Result Comment: Pharmacy Medications Albuterol (Eqv-ProAir HFA) = 180 mcg, Inhalation, Every 6 hours, 0 Refills, Maintenance, 08/17/24 5:17:00 PM EST, Partial fill upon patient request if the prescription is for a schedule II opioid drug. Start Date: 08/17/24 Status: Ordered Repeat number: 1 amLODIPine 2.5 mg oral tablet 1 tablet, By Mouth, Daily, # 90 tablet, 1 Refills, Maintenance, 08/04/24 10:52:00 AM EST, [facility] [address], 166, cm, 07/27/24 8:47:00 EST, Height Start Date: 08/04/24 Status: Ordered Quantity: 90.0 Unit: tablet Repeat number: 1 atorvastatin 80 mg oral tablet 1 tablet, By Mouth, Daily, # 90 tablet, 1 Refills, Maintenance, 04/26/24 7:44:00 AM EST, [facility] [address], 166, cm, 02/13/24 8:45:00 EDT, Height Start Date: 04/26/24 Status: Ordered Quantity: 90.0 Unit: tablet Repeat number: 1 Biotin See Instructions, Takes twice a week, 0 Refills, Maintenance, 02/25/19 2:56:50 PM EDT Start Date: 02/25/19 Status: Ordered Repeat number: 1 Colace sodium 100 mg oral capsule 100 mg, 1, capsule, By Mouth, Daily, Refills 0, Maintenance, 08/17/24 5:19:00 PM EST, Partial fill upon patient request if the prescription is for a schedule II opioid drug. 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 Refills 0, Maintenance, 09/07/24 10:25:00 AM EDT, Route to Pharmacy Electronically, [facility]/pharmacy #[id number], Partial fill upon patient requestif the prescription is for a schedule II opioid drug., 164.4, cm, 09/07/24 9:33:00 EDT, Height, 85.2, kg, 09/07/24 9:33:00 EDT, Dry Weight Start Date: 09/07/24 Status: Ordered Quantity: 90.0 Unit: tablet Repeat number: 1 hydrOXYzine hydrochloride 25 mg oral tablet 1 tablet = 25 mg, By Mouth, 4 times a day, PRN for itching, # 40 tablet, 0 Refills, Maintenance, 09/24/24 4:01:00 PM EDT, Tablet, [facility]/pharmacy #[id number], Partial fill upon patient request if the prescription is for a schedule II opioid drug., 166, cm, 09/24/24 14:11:00 EDT, Height, 84.9, kg, 09/24/24 14:11:00 EDT, Dry Weight Start Date: 09/24/24 Status: Ordered Quantity: 40.0 Unit: tablet Repeat number: 1 olmesartan 40 mg oral tablet 1 tablet, By Mouth, Daily, # 30 tablet, 5 Refills, Maintenance, 09/01/24 1:29:00 PM EDT, [facility] [address], 167, cm, 08/27/24 7:49:00 EST, Height, 87, kg, 08/26/24 7:16:00 EST, Dry Weight Start Date: 09/01/24 Status: Ordered Quantity: 30.0 Unit: tablet Repeat number: 1 ondansetron 4 mg oral tablet, disintegrating 1 tablet = 4 mg, By Mouth, Every 8 hours, PRN Nausea & Vomiting, # 10 tablet, 1 Refills, Maintenance, 09/09/24 12:14:00 PM EDT, Tablet, [id number], Partial fill upon patient request if theprescription is for a schedule II opioid drug., 164.4, cm, 09/07/24 11:12:00 EDT, Height, 85.2, kg,09/07/24 9:33:00 EDT, Dry Weight Start Date: 09/09/24 Status: Ordered Quantity: 10.0 Unit: tablet Repeat number: 2 predniSONE 10 mg oral tablet See Instructions, 3 tablets for 4 days, 2 tablets for 4 days and 1 tablet for 4 days, # 25 tablet, 0 Refills, Maintenance, 10/01/24 2:07:00 PM EDT, [id number], Partial fill upon patient request if the prescription is for a schedule II opioid drug., 166, cm, 10/01/24 13:28:00 EDT, Height, 84.4, kg, 10/01/24 13:28:00 EDT, Dry Weight Start Date: 10/01/24 Status: Ordered Quantity: 25.0 Unit: tablet Repeat number: 1 prochlorperazine 5 mg oral tablet 1 tablet = 5 mg, By Mouth, Every 6 hours, PRN Nausea & Vomiting, # 20 tablet, 1 Refills, Maintenance, 09/09/24 12:16:00 PM EDT, Tablet, [id number], Partial fill upon patient request if theprescription is for a schedule II opioid drug., 164.4, cm, 09/07/24 11:12:00 EDT, Height, 85.2, kg,09/07/24 9:33:00 EDT, Dry Weight Start Date: 09/09/24 Status: Ordered Quantity: 20.0 Unit: tablet Repeat number: 2 Problem List Condition Confirmation Course Effective Dates Status H ealth Status Informant Adenocarcinoma of lung Confirmed Active Benign hypertension Confirmed Active Chronic respiratory failure with hypoxia Confirmed Active Chronic kidney disease (CKD) stage G3a/A1 Confirmed Active Former smoker 52 pack years, quit 1996 Confirmed Active Hyperlipidemia Confirmed Active Bladder cancer, 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 Social History Social History Type Response Smoking Status Former smoker, quit more than 30 days ago entered on: 09/01/24 Sex Sex Representation Female (finding) Patient Care team information Care Team Personnel Name: Jess Aquino Position: [facility] Outreach Member Role: Lifetime Consulting Physician Name: Caro Powers RN Position: [facility] Onco RN Member Role: Primary Care Nurse Name: Umang SALAS, Angela Knox Position: [facility] PCO Associate Professional Member Role: PCP Address: [address] [place] [address]- Telecom: Name: Brianna Vicente RN Position: [facility] RN Member Role: Primary Care Nurse Care Team Related Persons Name: EVERARDO HUTCHINSON Insurance Providers Guarantor name: HAI HUTCHINSON Health Plan Information #: 1 Payer: MEDICARE PART B OUTPT Member Number: NA Policy Number: NA Group Number: NA Health Plan Information #: 2 Payer: MEDEX Member Number: NA Policy Number: NA Group Number: NA
--- OUTSIDE RECORDS SUMMARY | 2024-10-08 08:45 | XMS_ITS | Continuity of Care Document ---
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 Name Role Phone Umang SALAS, Angela Knox Primary Care Physician [phone] [place] [facility]): 09/07/24 - 10/07/24 [facility] [address] [place] [id number] Encounter Type: Triage Allergies, Adverse Reactions, Alerts Substance Criticality Severity Reaction Reaction Severity Status codeine nausea Active Immunizations Given and Recorded Vaccine Date Status Refusal Reason pneumococcal 20-valent conjugate vaccine 10/05/24 Given SARS-CoV-2(COVID-19)mRNA-LNP vac([id number]) 02/19/24 Recorded SARS-CoV-2(COVID-19)mRNA-LNP vac(ngw492) 03/24/23 Recorded influenza virus vaccine, inactivated 02/19/24 Tyrell rded influenza virus vaccine, inactivated 02/15/23 Tyrell rded influenza virus vaccine, inactivated 02/19/22 Tyrell rded influenza virus vaccine, inactivated 02/09/21 Tyrell rded influenza virus vaccine, inactivated 02/24/18 Tyrell rded influenza virus vaccine, inactivated 05/04/16 Tyrell rded [id number] 12y+ bivalent booster vax 10/17/22 Recorded [id number] 12y+ bivalent booster vax 03/12/22 Recorded SARS-CoV-2 mRNA (glseirq-vkbm-xjloh) vax 09/27/21 Recorded SARS-CoV-2 (COVID-19) mRNA BNT-162b2 [...] pneumococcal 23-valent vaccine 01/08/11 Recorded 1Result Comment: [facility] 2Result Comment: [facility] 3Result Comment: [facility] 4Result Comment: Pharmacy 5Result Comment: Pharmacy [...] 1 Refills, Maintenance, 08/04/24 10:52:00 AM EST, [id number], 166, cm, 07/27/24 8:47:00 EST, Height Start Date: 08/04/24 Status: Ordered Quantity: 90.0 Unit: tablet Repeat number: 1 atorvastatin 80 mg oral tablet 1 tablet, By Mouth, Daily, # 90 tablet, 1 Refills, Maintenance, 04/26/24 7:44:00 AM EST, [id number], 166, cm, 02/13/24 8:45:00 EDT, Height Start [...] 10:25:00 AM EDT, Route to Pharmacy Electronically, [facility]/pharmacy #[id number], Partial fill upon patient requestif the [...] Refills, Maintenance, 09/24/24 4:01:00 PM EDT, Tablet, [facility]/pharmacy #[id number], Partial fill upon patient request if the prescription is for a schedule II opioid drug., 166, cm, 09/24/24 14:11:00 EDT, Height, 84.9, kg, 09/24/24 14:11:00 EDT, Dry Weight Start Date: 09/24/24 Status: Ordered Quantity: 40.0 Unit: tablet Repeat number: 1 olmesartan 40 mg oral tablet 1 tablet, By Mouth, Daily, # 30 tablet, 5 Refills, Maintenance, 09/01/24 1:29:00 PM EDT, [facility] [id number], 167, cm, 08/27/24 7:49:00 EST, Height, 87, [...] Care Team Personnel Name: Jess Aquino Position: [facility] Outreach Member Role: Lifetime Consulting Physician Name: Caro Powers RN Position: [facility] Onco RN Member Role: Primary Care Nurse Name: Umang SALAS, Angela Knox Position: [facility] PCO Associate Professional Member Role: PCP Address: [address] [place] [address]- Telecom: Name: Brianna Vicente RN Position: [facility] RN Member Role: Primary Care Nurse Care Team Related Persons Name: EVERARDO HUTCHINSON Insurance Providers Guarantor name: HAI HUTCHINSON Health Plan Information #: 1 Payer: MEDICARE PART B OUTPT Member Number: NA Policy Number: NA Group Number: NA Health Plan Information #: 2 Payer: MEDEX Member Number: NA Policy Number: NA Group Number: NA
--- NOTE | 2024-10-08 08:58 | A.OFFVIS_ITS ---
Intake Visit Reasons: 6m cysto Intake Note: Patient is present for 6M Cystoscopy Urology Medication:NONE Antibiotic Allergy:NONE Blood Thinner:NONE Lot:[id number] Exp:10/30/26 Administrative Support Manager Required: No Allergies codeine [CODEINE] Allergy (Unknown, Verified 10/08/24 08:59) NAUSEA & VOMITING oxycodone [OXYCODONE] Allergy (Unknown, Verified 10/08/24 08:59) UNKNOWN HPI Comments Details: Leilani HUTCHINSON is a very pleasant female. She is a patient of . She is seen for the following urologic conditions - bladder cancer Cystoscopy performed No evidence of disease Discussed findings from July Thoracic biopsy performed Diagnosed with lung cancer Metastatic disease identified in L1 vertebra CT abdomen showed mild dilatation of left renal pelvis. Question of urothelial enhancement. Currently undergoing Keytruda therapy Will plan for diagnostic ureteroscopy Urine cytology has been negative over past few years She had good prior response to intravesical immunotherapy Bladder Cancer: November 2017 T1 - high-grade, multifocal - initial therapy TURBT followed by BCG and surveillance Bladder cancer was initially diagnosed during evaluation for gross hematuria - 11/[address] Duncan. Bladder intervention(s) performed 12/09 , TURBT, T1 invades subepithelium, High Grade 05/11 restaging bladder biopsy. Recurrence Risk per EORTC Intermediate Risk. Bladder cancer risk factors Organic Solvent exposure No smoking Yes - 30 year a history stopped in 1994 Prior Cystoscopy 04/10 BCG redness 07/12 BCG inflammation, 10/10 BCG inflammation on back wall, 01/09 mild red changes, trabeculation, 05/12 BCG changes 09/10 BCG changes, 12/11 NAD, 08/14 NAD, 02/11 NAD, 08/15 NAD, 02/12 NAD, 08/16 NAD, 03/16 mild inflamation, 10/14 NAD Prior Cytology 10/09 positive for high-grade cells, 07/12 , Negative for malignancy, Inflammatory cells 04/11 , Negative for malignancy, 05/12 NAD, 08/13 NAD, 11/10 Atypical, 08/14 NAD, 02/12 NAD, 03/16 NAD, 09/14 scant atypical cells Prior Imaging 12/09 , Retrogrades, Negative 11/08 CT Scan , Negative. Previous intravesical therapy 01/08 , BCG Induction, 04/10 BCG Maintanence, 01/09 BCG Maintanence, 08/13 Gemcitabine Maintanence. Planned treatment - surveillance protocol [facility] Medical History Diabetes mellitus, type II GERD (gastroesophageal reflux disease) Malignant neoplasm of anterior wall of urinary bladder Surgical History History of hysterectomy Social History Patient Tobacco Use Status: Former Tobacco user Current occupational status: retired Office Procedures Cystoscopy Consent Discussed risk and benefit or proposed procedure with the patient. Information consent for procedure given to the patient. Discussed technical aspects, risks, benefits and alternatives in full. Addressed all of the patient's questions and concerns regarding the procedure. The patient demonstrated knowledge and understanding. They wish to proceed with this procedure. Preparation The patient was prepped in the usual manner. A extension service specialist in charge was present and in the room. Genitalia was prepped with betadine solution in a sterile manner. Lidocaine Jelly 2% was placed into the urethra and 16Fr flexible Olympus cystoscope was inserted into the meatus after adequate lubrication. Procedure Meatus normal Urethra normal Bladder examination with retroflexion of cystoscope Bladder Orifices normal shape and position Trigone normal Bladder Capacity normal Trabeculations normal Cellule Formation - Diverticulum Formation - Mucosal Erythema - Bladder Tumor - [id number] DISPOSABLE SCOPE URO-G FLEXIBLE SCOPE Procedure code (CPT) selection complete Office Meds lidocaine HCl 2 % mucosal jelly in applicator Performing Provider: Craig Duncan MD Performing Location: [facility] Administered by: Yuriy Palacios LPN on 10/08/24 09:15 Dose Route Admin Location Dispensed Lot Number Expiration Date ND Social Media Sr Strategy Manager 10 mL intra-urethral 10 mL nitrofurantoin monohydrate/macrocrystals 100 mg capsule Performing Provider: Craig Duncan MD Performing Location: [facility] Administered by: Yuriy Palacios LPN on 10/08/24 09:15 Dose Route Admin Location Dispensed Lot Number Expiration Date ND Social Media Sr Strategy Manager 100 mg PO 1 cap Results AMB Urinalysis, Automated UA Leukoctes 0 Frederic/uL Last Edit by GERMAN Adam on 10/08/24 10:52 UA Nitrite Negative Last Edit by GERMAN Adam on 10/08/24 10:52 UA Urobilinogen 0.2 mg/dL Last Edit by Juan Jasmine [facility] on 10/08/24 10:5 2 UA Protein 0 mg/dL Last Edit by Juan Jasmine [facility] on 10/08/24 10:52 UA pH 6.5 Last Edit by Juan Jasmine [facility] on 10/08/24 10:52 UA Blood 0 [place]/uL Last Edit by Juan Jasmine [facility] on 10/08/24 10:52 UA Specific [place] 1.010 Last Edit by Juan Jasmine [facility] on 10/08/24 10: 52 UA Ketone Negative Last Edit by Juan Jasmine [facility] on 10/08/24 10:52 UA Bilirubin 0 mg/dL Last Edit by Juan Jasmine [facility] on 10/08/24 10:52 UA Glucose 0 mg/dL Last Edit by Juan Jasmine [facility] on 10/08/24 10:52 Results Reviewed Results Reviewed: Laboratory Last Values Urine pH (Auto) 6.5 10/08/24 10:51 Specific [place] (Auto) 1.010 10/08/24 10:51 Urine Protein (Auto) 0 mg/dL 10/08/24 10:51 Glucose (UA)(Auto) 0 mg/dL 10/08/24 10:51 Urine Ketones (Auto) Negative 10/08/24 10:51 Urine Blood (Auto) 0 [place]/uL 10/08/24 10:51 Urine Nitrite (Auto) Negative 10/08/24 10:51 Urine Bilirubin (Auto) 0 mg/dL 10/08/24 10:51 Urine Urobilinogen (Auto) 0.2 mg/dL 10/08/24 10:51 Leukocyte Esterase (Auto) 0 Frederic/uL 10/08/24 10:51 Assessment & Plan Assessment & Plan (1) Bladder cancer: Comment: 2018 high-grade superficial treatment was TURBT and immunotherapy sequence Code(s): C67.9 - Malignant neoplasm of bladder, unspecified Category: Medical Plan Risks, benefits and alternatives to therapy were discussed. These include but are not limited to infection, bleeding, damage to local organs and tissues, need for further interventions. Anesthetic risks regarding cardiac arrhythmia, blood clots, and potential mortality were discussed. The patient understands the typical recovery time and the outpatient nature of the procedure. After consideration of these risks the patient gives full informed consent and they wish to move ahead with the procedure. Cysto, left retrograde, left ureteroscopy diagnostic Orders: Orders Urine Cytology Today C67.9 - Malignant neoplasm of bladder, unspecified AMB Cystoscopy Today C67.9 - Malignant neoplasm of bladder, unspecified AMB Urinalysis Automated Today Z13.9 - Encounter for screening, unspecified Patient Instructions: This note is constructed using voice recognition software. While every effort has been made to ensure accuracy life enrichment manager errors may have been included. Imaging studies, laboratory and physical exam results were discussed and reviewed in detail. No major barriers to patient understanding were identified. An opportunity to ask questions regarding the treatment plan was provided. All questions were answered. The patient expressed understanding and agreement with the above treatment plan. The patient is aware they should contact our office by phone for worsening of their current condition or the appearance of new urologic symptoms. Compliance is encouraged with any medications and followup testing that is ordered. It is a privilege to participate in the urologic care of your patient. If you have any questions or concerns regarding treatment for the above conditions, or other urologic issues, please do not hesitate to contact me. The office tel ephone contact is [phone]. Sincerely, Dr Craig Duncan MD, [facility] - Urology Compassionate Specialist Care for the Genitourinary System Coding Level of Care Code Est Pt Level 3 (58027) Diagnoses Bladder cancer C67.9 CPT Codes Cystoscopy - CPT: 28080-[id number] ([id number])
== END 2024-10-08 09:46 | disposition home or self-care (01) ==
LOC: HO.HUSH 08:25
PROVIDERS: PCP Nurse Practitioner Family; Visit Provider Urology
DX: C67.9 Malignant neoplasm of bladder, unspecified (principal); Z13.9 Encounter for screening, unspecified
CPT/HCPCS: 52000; 99213

== ENCOUNTER 2024-10-08 08:24 | Outpatient (REF) | payer MEDICARE, SELFPAY ==
[2024-10-08 17:33] LABS: Urine Cytology See Pathology rpt
== END 2024-10-08 08:25 | disposition home or self-care (01) ==
LOC: HO.LAB 08:24
PROVIDERS: PCP Nurse Practitioner Family; Visit Provider Urology
DX: C67.9 Malignant neoplasm of bladder, unspecified (principal)
CPT/HCPCS: 52000; 81003; 88112; 99212

== ENCOUNTER 2024-12-16 11:07 | Outpatient (AMB) | payer MEDICARE, SELFPAY ==
--- OUTSIDE RECORDS SUMMARY | 2024-12-13 23:59 | XMS_ITS | Continuity of Care Document ---
Author Organization [facility] ter Address [address] [place] [address]- Care Team Providers Care Pie Maker Machine Name Role Phone Umang SALAS, Angela Knox Primary Care Physician Encounter [facility] Date(s): 11/13/24 - 12/13/[address] [address] Attending Physician: Not on Staff, Attending MD Admitting Physician: Not on Staff, Admitting MD Referring Physician: Not on Staff, Referring MD Encounter Type: Pre-Outpt Allergies, Adverse Reactions, Alerts Substance Criticality Severity Reaction Reaction Severity Status codeine nausea Active oxytocin Active Immunizations Given and Recorded Vaccine Date Status Refusal Reason pneumococcal 20-valent conjugate vaccine 10/05/24 Given SARS-CoV-2(COVID-19)mRNA-LNP vac(ohi275) 02/19/24 Recorded SARS-CoV-2(COVID-19)mRNA-LNP vac(voc395) 03/24/23 Recorded influenza virus vaccine, inactivated 02/19/24 Tyrell rded influenza virus vaccine, inactivated 02/15/23 Tyrell rded influenza virus vaccine, inactivated 02/19/22 Tyrell rded influenza virus vaccine, inactivated 02/09/21 Tyrell rded influenza virus vaccine, inactivated 02/24/18 Tyrell rded influenza virus vaccine, inactivated 05/04/16 Tyrell rded [id number] 12y+ bivalent booster vax 10/17/22 Recorded [id number] 12y+ bivalent booster vax 03/12/22 Recorded SARS-CoV-2 mRNA (fzwkewh-dggn-mzuai) vax 09/27/21 Recorded SARS-CoV-2 (COVID-19) mRNA BNT-162b2 [...] 13-valent vaccine 06/20/15 Recorded tetanus-diphtheria toxoids (Td) 2011 Recorded pneumococcal 23-valent vaccine 01/08/11 Recorded 1Result Comment: [facility] 2Result Comment: [facility] 3Result Comment: [facility] 4Result Comment: Pharmacy 5Result Comment: Pharmacy Medications Albuterol (Eqv-ProAir HFA) 90 mcg/inh inhalation aerosol = 180 mcg, Inhalation, Every 6 hours, PRN Wheezing/Shortness of Breath, # 8.5 Gm, 0 Refills, Maintenance, 12/01/24 2:11:00 PM EDT, Inhaler, [facility], Partial fill upon patient request if the prescription is for a schedule II opioid drug., 180 mcg Inhalation Every 6 hours,x30 days,PRN: Wheezing/Shortness of Breath, 169, cm, 12/01/24 13:30:00 EDT, Height, 78, kg, 11/27/24 9:21:00 EDT,Dry Weight Start Date: 12/01/24 Stop Date: 12/31/24 Status: Ordered Quantity: 8.5 Unit: g Repeat number: 1 albuterol 2.5 mg/0.5 mL (0.5%) inhalation solution 0.5 mL = 2.5 mg, Neb, 3 times a day, to be used inconjunction with Sodium Chloride via nebulizer, j44.9, # 100 mL, 3 Refills, Maintenance, 12/04/24 4:38:00 PM EDT, [facility]/pharmacy #[id number], Partial fill upon patient request if the prescription is for a schedule II opioid drug., 169, cm, 12/01/24 13:30:00 EDT, Height, 78, kg, 11/27/24 9:21:00 EDT, Dry Weight Start Date: 12/04/24 Status: Ordered Quantity: 100.0 Unit: mL Repeat number: 4 amLODIPine 2.5 mg oral tablet 1 tablet, By Mouth, Daily, # 90 tablet, 1 Refills, Maintenance, 08/04/24 10:52:00 AM EST, [facility], 166, cm, 07/27/24 8:47:00 EST, Height Start Date: 08/04/24 Status: Ordered Quantity: 90.0 Unit: tablet Repeat number: 1 atorvastatin 80 mg oral tablet 1 tablet, By Mouth, Daily, # 90 tablet, 1 Refills, Maintenance, 04/26/24 7:44:00 AM EST, [facility], 166, cm, 02/13/24 8:45:00 EDT, Height Start Date: 04/26/24 Status: Ordered Quantity: 90.0 Unit: tablet Repeat number: 1 Colace sodium 100 mg [...] 1 folic acid 1 mg oral tablet 1, tablet, By Mouth, Daily, # 90 tablet, Refills 0, Maintenance, 12/02/24 12:52:00 PM EDT, Route to Pharmacy Electronically, [facility], 169, cm, 12/01/24 13:30:00 EDT, Height, 78, kg, 11/27/24 9:21:00 EDT, Dry Weight Start Date: 12/02/24 Status: Ordered Quantity: 90.0 Unit: tablet Repeat number: 1 olmesartan 40 mg oral tablet 1 tablet, By Mouth, Daily, # 30 tablet, 5 Refills, Maintenance, 09/01/24 1:29:00 PM EDT, [facility], 167, cm, 08/27/24 7:49:00 EST, Height, 87, kg, 08/26/24 7:16:00 EST, Dry Weight Start Date: 09/01/24 Status: Ordered Quantity: 30.0 Unit: tablet Repeat number: 1 sodium chloride 0.9% inhalation solution See Instructions, 3 mL nebulizations 2 times a day ICD-10 code J 44.9 COPD, # 60 each, 1 Refills, Maintenance, 12/04/24 3:12:00 PM EDT, Inhalation Solution, [id number], Partial fill upon patient request if the prescription is for a schedule II opioid drug., 169, cm, 12/01/24 13:30:00 EDT, Height, 78, kg, 11/27/24 9:21:00 EDT, Dry Weight Start Date: 12/04/24 Status: Ordered Quantity: 60.0 Unit: each Repeat number: 2 Problem List Condition Confirmation Course Effective Dates Status H ealth Status Informant Adenocarcinoma of lung Confirmed Active Benign hypertension Confirmed Active Chronic respiratory failure with hypoxia Confirmed Active Chronic kidney disease (CKD) stage G3a/A1 Confirmed Active Former smoker 52 pack years, quit 1996 Confirmed Active Hyperlipidemia Confirmed Active Bladder cancer, BCG infusions Confirmed Active Emphysema/COPD Confirmed Active Type 2 diabetes mellitus with renal complication Confirmed Active Social History Social History Type Response Smoking Status Former smoker, quit more than 30 days ago entered on: 09/01/24 Sex Sex Representation Female (finding) Patient Care team information Care Team Personnel Name: Elida Roth RN Position: [facility] RN Member Role: Primary Care Nurse Name: Cindy Brandt RN Position: [facility] RN Member Role: Primary Care Nurse Name: Dulce Lockett RN Position: [facility] RN Member Role: Primary Care Nurse Name: Caterina Paredes Position: [facility] RN Member Role: Primary Care Nurse Name: Jess Aquino Position: [facility] Outreach Member Role: Lifetime Consulting Physician Name: Ailyn Whalen RN Position: [facility] RN Member Role: Primary Care Nurse Name: Caro Powers RN Position: [facility] Onco RN Member Role: Primary Care Nurse Name: Angela Heck NP Position: [facility] PCO Associate Professional Member Role: PCP Address: [address] [place] [address]- Telecom: Name: Cindy Clifton RN Position: [facility] OB RN Member Role: Primary Care Nurse Name: Brianna Vicente RN Position: [facility] RN Member Role: Primary Care Nurse Name: Perri Betts RN Position: [facility] RN Member Role: Primary Care Nurse Name: Margaux Arenas RN Position: [facility] RN Member Role: Primary Care Nurse Name: Saran Foreman RN Position: [facility] RN Member Role: Primary Care Nurse Name: Tian Hernández RN Position: [facility] RN Member Role: Primary Care Nurse Name: Lisette Farias LPN Position: [facility] RN Member Role: Primary Care Nurse Name: Gary Bridges RN Position: [facility] RN Member Role: Primary Care Nurse Name: Giovanna Chun RN Position: [facility] RN Member Role: Primary Care Nurse Name: Eddi Taveras MD, Kwame Cerrato Position: [facility] Physician - Oncology Member Role: Lifetime Consulting Physician Address: [address] [place] [address] Hem/Onc [address] Telecom: Care Team Related Persons Name: EVANGELINAEVERARDO Insurance Providers Guarantor name: HAI HUTCHINSON Health Plan Information #: 1 Payer: MEDICARE B Payer Identifier: Member Number: [id number] Group Number: Subscriber Identifier: [id number] Relationship to Subscriber: self Coverage Type: Coverage Verification Date: Telecom: Address: [facility] Information #: 2 Payer: MEDEX SECONDARY ONLY Payer Identifier: Member Number: [id number] Group Number: [id number] Subscriber Identifier: [id number] Relationship to Subscriber: self Coverage Type: Medicare Other Coverage Verification Date: Telecom: Address:
--- NOTE | 2024-12-16 11:08 | A.OFFVIS_ITS ---
Intake Visit Reasons: Biopsy/ Radiation oncology discussion Intake Note: Patient is present for BIOPSY/RADIATION ONCOLOGY DISCUSSION Urology Medication:NONE Antibiotic AllergyNONE: Blood Thinner:NONE Lens Grinder Rough Required: No Allergies codeine (CODEINE) Allergy (Unknown, Verified 12/16/24 11:09) NAUSEA & VOMITING oxycodone (OXYCODONE) Allergy (Unknown, Verified 12/16/24 11:09) UNKNOWN HPI Comments Details: Leilani HUTCHINSON is a very pleasant female. She is a patient of . She is seen for the following urologic conditions - bladder cancer Radiation Oncology - Dr Kumar Telemedicine Evaluation 15 min Consultation [employer] Areli has been busy with diagnosis of metastatic lung cancer Recent imaging performed with Dr. Kumar showed renal lesion stabilized We did discuss that Keytruda is also used for high-grade bladder cancer so the lesion within her kidney may have responded to this Given her difficulties with her thoracic condition and the fact she now has a thoracic stent we can defer ureteroscopy Would still keep with bladder surveillance in March Last cytology was negative in July Thoracic biopsy performed Diagnosed with lung cancer Metastatic disease identified in L1 vertebra CT abdomen showed mild dilatation of left renal pelvis. Question of urothelial enhancement. Currently undergoing Keytruda therapy Will plan for diagnostic ureteroscopy Urine cytology has been negative over past few years She had good prior response to intravesical immunotherapy Bladder Cancer: November 2017 T1 - high-grade, multifocal - initial therapy TURBT followed by BCG and surveillance Bladder cancer was initially diagnosed during evaluation for gross hematuria - 11/[address] Duncan. Bladder intervention(s) performed 12/09 , TURBT, T1 invades subepithelium, High Grade 05/11 restaging bladder biopsy. Recurrence Risk per [employer] Intermediate Risk. Bladder cancer risk factors Organic Solvent exposure No smoking Yes - 30 year a history stopped in 1994 Prior Cystoscopy 04/10 BCG redness 07/12 BCG inflammation, 10/10 BCG inflammation on back wall, 01/09 mild red changes, trabeculation, 05/12 BCG changes 09/10 BCG changes, 12/11 NAD, 08/14 NAD, 02/11 NAD, 08/15 NAD, 02/12 NAD, 08/16 NAD, 03/16 mild inflamation, 10/14 NAD Prior Cytology 10/09 positive for high-grade cells, 07/12 , Negative for malignancy, Inflammatory cells 04/11 , Negative for malignancy, 05/12 NAD, 2 NAD, 5/ Atypical, 2 NAD, 8/ NAD, 9 NAD, 3/ scant atypical cells Prior Imaging 12/09 , Retrogrades, Negative 11/08 CT Scan , Negative. Previous intravesical therapy 01/08 , BCG Induction, 04/10 BCG Maint anence, 01/09 BCG Maintanence, 08/13 Gemcitabine Maintanence. Planned treatment - surveillance protocol [facility] Medical History Diabetes mellitus, type II GERD (gastroesophageal reflux disease) Malignant neoplasm of anterior wall of urinary bladder Surgical History History of hysterectomy Social History Patient Tobacco Use Status: Former Tobacco user Current occupational status: retired Review of Systems Const All systems reviewed & are unremarkable except as noted in HPI and below Reports no additional complaints Resp Reports no additional complaints GI Reports no additional complaints Reports as per HPI Musc Reports no additional complaints Physical Exam Telemedicine evaluation Appropriate responses Regular breathing rate and rhythm HEENT Head: Yes normal to inspection Ears: hearing grossly normal bilaterally Eyes General: appearance normal, both eyes and all related structures Neck Neck: Yes normal visual inspection Chest Chest palpation & inspection: normal inspection of the chest Resp Effort & Inspection: normal respiratory effort and able to speak in complete sentences Telehealth Telehealth Telehealth Platform: [facility] Location of provider rendering services: practice address Location of patient: address on file Patient Identification confirmed using: Name, : Yes Telehealth method: video Patient verbally consented to treatment: Yes Patient verbally consented to billing insurance company: Yes Patient informed of any privacy concerns related to visit: Yes Assessment & Plan Assessment & Plan (1) Bladder cancer: Comment: 2017 high-grade superficial treatment was TURBT and immunotherapy sequence Code(s): C67.9 - Malignant neoplasm of bladder, unspecified Category: Medical Plan Cystoscopy March Patient Instructions: This note is constructed using voice recognition software. While every effort has been made to ensure accuracy cnc lathe machinist errors may have been included. Imaging studies, laboratory and physical exam results were discussed and reviewed in detail. No major barriers to patient understanding were identified. An opportunity to ask questions regarding the treatment plan was provided. All questions were answered. The patient expressed understanding and agreement with the above treatment plan. The patient is aware they should contact our office by phone for worsening of their current condition or the appearance of new urologic symptoms. Compliance is encouraged with any medications and followup testing that is ordered. It is a privilege to participate in the urologic care of your patient. If you have any questions or concerns regarding treatment for the above conditions, or other urologic issues, please do not hesitate to contact me. The office telephone contact is [phone]. Sincerely, Dr Craig Duncan MD, [facility] - Urology Compassionate Specialist Care for the Genitourinary System Coding Level of Care Code Tele Est Pt Level 3 (92436) Complex EM visit Add On G2211 Diagnoses Bladder cancer C67.9
== END 2024-12-16 13:04 | disposition home or self-care (01) ==
LOC: HO.HUSH 11:07
PROVIDERS: PCP Nurse Practitioner Family; Visit Provider Urology
DX: C67.9 Malignant neoplasm of bladder, unspecified (principal)
CPT/HCPCS: 99213; G2211

== ENCOUNTER → 2024-12-16 11:07 | Outpatient (BNVA) | payer MEDICARE, SELFPAY | PROVIDERS: PCP Nurse Practitioner Family; Visit Provider Urology | DX: Z13.89 Encounter for screening for other disorder (principal) ==